=== PATIENT | female | born 1945 | race American Indian/Alaskan Native ===

== ENCOUNTER 2019-01-18 16:32 | Emergency (ER) | payer MEDICARE ==
[2019-01-18] MEDS ORDERED: TRAMADOL HCL 50 MG TAB ONE (17:15)
--- NOTE | 2019-01-18 17:36 | RAD REPORT ---
EXAM DESCRIPTION: RAD - Humerus Right - 01/18/2019 5:25 pm CLINICAL HISTORY: PAIN COMPARISON: No comparisons FINDINGS: Subacromial outlet narrowing is present suggesting underlying rotator cuff pathology. AC j oint and glenohumeral joint arthritic changes are noted. No acute fracture or dislocation evident.
--- NOTE | 2019-01-18 17:52 | RAD REPORT ---
EXAM DESCRIPTION: RAD - Forearm Right - 01/18/2019 5:25 pm CLINICAL HISTORY: PAIN COMPARISON: No comparisons FINDINGS: No acute fracture or dislocation seen.
--- NOTE | 2019-01-18 18:00 | EDPHYS ---
Physician Documentation [facility] Name: Esau Flynn Age: 73 yrs Sex: Female : 1945 Arrival Date: 01/18/2019 Time: 16:35 Bed 15 Private MD: ED Physician Praneeth Forbes HPI: 01/18 17:17 This 73 yrs old Other Female presents to ER via Ambulatory with complaints of Fall kb Injury, Shoulder Injury. 17:17 Details of fall: The patient fell from an upright position, while walking, tripped. kb Onset: The symptoms/episode began/occurred just prior to arrival. Associated injuries: The patient sustained right arm, decreased range of motion, painful injury. Severity of symptoms: At their worst the symptoms were moderate, in the emergency department the symptoms are unchanged. The patient has not experienced similar symptoms in the past. The patient has not recently seen a physician. 17:17 Pt reports she was walking, tripped and fell landing on outstretched right arm. c/o kb pain and decreased ROM to right arm and shoulder. Pain upon palpation of entire right arm.. Historical: - Allergies: 16:54 Sulfa (Sulfonamide Antibiotics); hb - PMHx: 16:54 breast cancer; Hypertension; neuropathy; Hypothyroidism; hb - PSHx: 16:54 Cholecystectomy; Hysterectomy; Left lumpectomy; right shoulder; hb - Immunization history:: Adult Immunizations up to date. - Social history:: Smoking status: Patient/guardian denies using tobacco. - Ebola Screening: : No symptoms or risks identified at this time. ROS: 17:14 Constitutional: Negative for fever, chills, and weight loss, Cardiovascular: Negative kb for chest pain, palpitations, and edema, Respiratory: Negative for shortness of breath, cough, wheezing, and pleuritic chest pain, Abdomen/GI: Negative for abdominal pain, nausea, vomiting, diarrhea, and constipation, Back: Negative for injury and pain, Skin: Negative for injury, rash, and discoloration, Neuro: Negative for headache, weakness, numbness, tingling, and seizure. 17:14 MS/extremity: Positive for decreased range of motion, pain, tenderness, of the right arm. Exam: 17:15 Constitutional: This is a well developed, well nourished patient who is awake, alert, kb and in no acute distress. Head/Face: Normocephalic, atraumatic. Neck: Trachea midline, no thyromegaly or masses palpated, and no cervical lymphadenopathy. Supple, full range of motion without nuchal rigidity, or vertebral point tenderness. No Meningismus. Chest/axilla: Normal chest wall appearance and motion. Nontender with no deformity. No lesions are appreciated. Cardiovascular: Regular rate and rhythm with a normal S1 and S2. No gallops, murmurs, or rubs. Normal PMI, no JVD. No pulse deficits. Respiratory: Lungs have equal breath sounds bilaterally, clear to auscultation and percussion. No rales, rhonchi or wheezes noted. No increased work of breathing, no retractions or nasal flaring. Abdomen/GI: Soft, non-tender, with normal bowel sounds. No distension or tympany. No guarding or rebound. No evidence of tenderness throughout. Skin: Warm, dry with normal turgor. Normal color with no rashes, no lesions, and no evidence of cellulitis. Neuro: Awake and alert, GCS 15, oriented to person, place, time, and situation. Cranial nerves II-XII grossly intact. Motor strength 5/5 in all extremities. Sensory grossly intact. Cerebellar exam normal. Normal gait. 17:15 Musculoskeletal/extremity: Extremities: grossly normal except: noted in the right arm: decreased ROM, pain, tenderness, ROM: limited active range of motion due to pain, limited passive range of motion due to pain, Circulation is intact in all extremities. Sensation intact. Vital Signs: 16:52 BP 136 / 78; Pulse 55; Resp 16; Temp 98.4; Pulse Ox 100% on R/A; Weight 83.91 kg; hb Height 5 ft. 4 in. (162.56 cm); Pain 10/10; 18:29 BP 138 / 72; Pulse 54; Resp 18; Temp 98.0; Pulse Ox 99% on R/A; ph 16:52 Body Mass Index 31.75 (83.91 kg, 162.56 cm) hb MDM: 16:58 Patient medically screened. kb 17:14 Data reviewed: vital signs, nurses notes. Data interpreted: Pulse oximetry: on room air kb is 100 %. Interpretation: normal. 17:58 Counseling: I had a detailed discussion with the patient and/or guardian regarding: the kb historical points, exam findings, and any diagnostic results supporting the discharge/admit diagnosis, radiology results, the need for outpatient follow up, a family practitioner, to return to the emergency department if symptoms worsen or persist or if there are any questions or concerns that arise at home. 01/18 17:01 Order name: Forearm Right XRAY; Complete Time: 17:58 kb 01/18 17:01 Order name: Humerus Right XRAY; Complete Time: 17:45 kb 01/18 17:59 Order name: Sling; Complete Time: 18:28 kb Administered Medications: 18:28 Not Given (Patient Refused): traMADol 50 mg PO once; RASS on ADMIN: Combtv4, Very ph Agttd3, Agttd2, Rstlss1, AlertClm0, Drwsy-1, Lt Sdtn-2, Mod Sdtn-3, Dp Sdtn-4, UnArsble-5 Disposition: 19:07 Co-signature as Attending Physician, Praneeth Forbes MD Signing chart for administrative ps1 purposes. Available for consultation in ED. . Disposition: 01/18/19 17:59 Discharged to Home. Impression: Fall on same level from slipping, tripping and stumbling, Pain in right arm. - Condition is Stable. - Discharge Instructions: Musculoskeletal Pain. - Prescriptions for Tramadol 50 mg Oral Tablet - take 1 tablet by ORAL route every 8 hours as needed; 12 tablet. - Medication Reconciliation Form, Thank You Letter, Antibiotic Education, Prescription Opioid Use form. - Follow up: Emergency Department; When: As needed; Reason: Worsening of condition. Follow up: Private Physician; When: 2 - 3 days; Reason: Recheck today's complaints, Continuance of care, Re-evaluation by your physician. Signatures: Dispatcher [employer] Catrina Cazares, URVASHI MATOS-Keyla Gardiner RN RN Herminia Polanco, BING RN Praneeth Shanks MD MD ps1 Corrections: (The following items were deleted from the chart) 18:29 17:59 01/18/2019 17:59 Discharged to Home. Impression: Fall on same level from ph slipping, tripping and stumbling; Pain in right arm. Condition is Stable. Forms are Medication Reconciliation Form, Thank You Letter, Antibiotic Education, Prescription Opioid Use. Follow up: Emergency Department; When: As needed; Reason: Worsening of condition. Follow up: Private Physician; When: 2 - 3 days; Reason: Recheck today's complaints, Continuance of care, Re-evaluation by your physician. kb
--- NOTE | 2019-01-18 18:00 | ER ---
Nurse's Notes [facility] Name: Esau Flynn Age: 73 yrs Sex: Female : 1945 Arrival Date: 01/18/2019 Time: 16:35 Bed 15 Private MD: Diagnosis: Fall on same level from slipping, tripping and stumbling;Pain in right arm Presentation: 01/18 16:52 Presenting complaint: Right shoulder pain after mechanical fall from standing onto hb outstretched hand today. Denies other injuries. Care prior to arrival: None. 16:52 Acuity: KHUSHI 4 hb 16:52 Method Of Arrival: Ambulatory hb 16:54 Transition of care: patient was not received from another setting of care. Onset of hb symptoms was January 18, 2019. Risk Assessment: Do you want to hurt yourself or someone else? Patient reports no desire to harm self or others. Initial Sepsis Screen: Does the patient meet any 2 criteria? No. Patient's initial sepsis screen is negative. Does the patient have a suspected source of infection? No. Patient's initial sepsis screen is negative. Historical: - Allergies: 16:54 Sulfa (Sulfonamide Antibiotics); hb - PMHx: 16:54 breast cancer; Hypertension; neuropathy; Hypothyroidism; hb - PSHx: 16:54 Cholecystectomy; Hysterectomy; Left lumpectomy; right shoulder; hb - Immunization history:: Adult Immunizations up to date. - Social history:: Smoking status: Patient/guardian denies using tobacco. - Ebola Screening: : No symptoms or risks identified at this time. Screenin:21 Abuse screen: Denies threats or abuse. Denies injuries from another. Nutritional ph screening: No deficits noted. Tuberculosis screening: No symptoms or risk factors identified. Fall Risk Fall in past 12 months (25 points). No secondary diagnosis (0 pts). No IV (0 pts). Ambulatory Aid- None/Bed Rest/Nurse Assist (0 pts). Gait- Normal/Bed Rest/Wheelchair (0 pts) Mental Status- Oriented to own ability (0 pts). Total Alvarez Fall Scale indicates Low Risk Score (25-44 pts). Fall prevention measures have been instituted. Side Rails Up X 2 Frequent Obs/Assesments occuring Family Present and informed to notify staff if they need to leave bedside As available Patient and Family Educated on Fall Prevention Program and strategies. Assessment: 17:20 General: Appears in no apparent distress. comfortable, well groomed, Behavior is calm, ph cooperative, appropriate for age. Pain: Complains of pain in right shoulder. Neuro: Level of Consciousness is awake, alert, obeys commands, Oriented to person, place, time, situation. Cardiovascular: Capillary refill < 3 seconds in bilateral fingers Patient's skin is warm and dry. Respiratory: Airway is patent Respiratory effort is even, unlabored. Derm: Skin is intact, Skin is pink, warm \T\ dry. Musculoskeletal: Circulation, motion, and sensation intact. Range of motion: intact in all extremities. Vital Signs: 16:52 BP 136 / 78; Pulse 55; Resp 16; Temp 98.4; Pulse Ox 100% on R/A; Weight 83.91 kg; hb Height 5 ft. 4 in. (162.56 cm); Pain 10/10; 18:29 BP 138 / 72; Pulse 54; Resp 18; Temp 98.0; Pulse Ox 99% on R/A; ph 16:52 Body Mass Index 31.75 (83.91 kg, 162.56 cm) hb ED Course: 16:35 Patient arrived in ED. mr 16:52 Triage completed. hb 16:52 Arm band placed on. hb 16:57 Catrina Mcginnis FNP-C is [facility]. kb 16:57 Praneeth Forbes MD is Attending Physician. kb 17:07 Keyla Ortiz, RN is Primary Nurse. ph 17:22 Patient has correct armband on for positive identification. Bed in low position. Call light in reach. 17:22 No provider procedures requiring assistance completed. ph 17:25 Forearm Right XRAY In Process Unspecified. EDMS 17:25 Humerus Right XRAY In Process Unspecified. EDMS 18:29 Patient did not have IV access during this emergency room visit. Sling applied to right ph arm. Administered Medications: 18:28 Not Given (Patient Refused): traMADol 50 mg PO once; RASS on ADMIN: Combtv4, Very ph Agttd3, Agttd2, Rstlss1, AlertClm0, Drwsy-1, Lt Sdtn-2, Mod Sdtn-3, Dp Sdtn-4, UnArsble-5 Outcome: 17:59 Discharge ordered by . kb 18:28 Discharged to home ambulatory, with family. ph 18:28 Condition: good 18:28 Discharge instructions given to patient, Instructed on discharge instructions, follow up and referral plans. medication usage, Demonstrated understanding of instructions, follow-up care, medications, Prescriptions given X 1. 18:29 Patient left the ED. ph Signatures: Dispatcher [employer] EDAL Catrina Mcginnis, URVASHI MATOS-Remigio Jose Marisela bains Keyla Ortiz RN RN Herminia Gomes RN RN Corrections: (The following items were deleted from the chart) 16:54 16:52 Presenting complaint: Right shoulder pain after mechanical fall from standing hb today. Denies other injuries. hb
[2019-01-18 20:37] VITALS: BP 138/72; TEMP 98; O2SAT 99
== END 2019-01-18 18:29 | disposition home or self-care (01) ==
LOC: ER 16:32
DX: M79.601 Pain in right arm (principal); W01.0XXA Fall on same level from slipping, tripping and stumbling without subsequent striking against object, initial encounter; Y93.9 Activity, unspecified; Y92.9 Unspecified place or not applicable; Z88.2 Allergy status to sulfonamides; Z85.3 Personal history of malignant neoplasm of breast
CPT/HCPCS: 99283

== ENCOUNTER → 2019-09-11 | Day surgery (SDC) | payer OTHER ==
--- NOTE | 2019-09-11 12:03 | RAD REPORT ---
EXAM DESCRIPTION: US - Breast Core BX w/US Guidance - 09/11/2019 11:19 am CLINICAL HISTORY: C50.412 COMPARISON: Breast ultrasound August 28 TECHNIQUE: The patient presents for ultrasound-guided biopsy of a 2 left breast masses. The ultrasound-guided core biopsy procedure, risks and alternatives were discussed with the patient i n detail. After answering all questions, both oral and written consent were obtained. Time out proced ure was performed. The patient had no contraindicated allergy or medication history. Preliminary imaging identified the 12 millimeter mass in the 10-11 o'clock left breast. The left liza st was prepped and draped in the usual sterile fashion. From a lateral and slightly inferior approach , skin and deeper tissues were anesthetized with 1% lidocaine. Under direct sonographic visualization a 14 gauge vacuum assisted core biopsy needle was advanced and placed at the margin of the mass. The re were a total of 2 core biopsies obtained under direct sonographic guidance. The mass did appear to have distortion in contour supporting transit of the biopsy needle through the small mass. At the conclusion of the procedure a localization clip was placed under sonographic guidance. Post biopsy imaging showed no hematoma or measurable bleeding within the breast. Hemostasis was obtai faustino at the skin site with a sterile bandage placed. Post procedure care and precaution instructions were given to the patient. IMPRESSION: 1. Ultrasound-guided core biopsy was performed of the left breast mass 10-11 o'clock pos ition breast mass. All obtained material was given to pathology for histologic assessment. 2. Post biopsy localization clip was placed under ultrasound guidance.
--- NOTE | 2019-09-11 12:05 | RAD REPORT ---
EXAM DESCRIPTION: US - Breast Core BX Addtnl - 09/11/2019 11:19 am CLINICAL HISTORY: 2 MASSES, left breast COMPARISON: Left breast ultrasound August 28 TECHNIQUE: The patient presents for ultrasound-guided biopsy of a 2 previously detailed left breast masses The ultrasound-guided core biopsy procedure, risks and alternatives were discussed with the patient i n detail. After answering all questions, both oral and written consent were obtained. Time out proced ure was performed. The patient had no contraindicated allergy or medication history. Preliminary imaging identified the small 8 mm mass 2 o'clock position. The left breast was prepped an d draped in the usual sterile fashion. The same access site was utilized for this second lesion biops y. The skin and deeper tissues were anesthetized with 1% lidocaine. Under direct sonographic visualiz ation a 14 gauge vacuum assisted core biopsy needle was advanced and placed at the margin of the mass . There were a total of 3 core biopsies obtained under direct sonographic guidance. The mass did appe ar to have distortion in contour supporting transit of the biopsy needle through the small mass. At the conclusion of the procedure a localization clip was placed under sonographic guidance. Post biopsy imaging showed no hematoma or measurable bleeding within the breast. Hemostasis was obtai faustino at the skin site with a sterile bandage placed. Post procedure care and precaution instructions were given to the patient. IMPRESSION: 1. Ultrasound-guided core biopsy was performed of the 8 mm 2 o'clock position left breas t mass. All obtained material was given to pathology for histologic assessment. 2. Post biopsy localization clip was placed under ultrasound guidance.
== END ==
LOC: DS 09:47
PROVIDERS: ATTEND Internal Medicine Hematology & Oncology
DX: C50.412 Malignant neoplasm of upper-outer quadrant of left female breast (principal); N63.20 Unspecified lump in the left breast, unspecified quadrant
CPT/HCPCS: 19083; 19084; 88305

== ENCOUNTER 2021-08-09 14:39 | Inpatient (IN) | payer OTHER, SELFPAY ==
--- OUTSIDE RECORDS SUMMARY | 2021-08-09 14:41 | XMS REPORT | Continuity of Care Document ---
:1945 [address] [facility] t Address [facility] [place] [address] Care Team Providers Name Role Phone Hal Attending Clinician Unavailable Problems This patient has no known problems. Allergies, Adverse Reactions, Alerts This patient has no known allergies or adverse reactions. Medications Ordered Filled Start Stop Current Ordering Indication Dosage Frequency Signature Comments Components Source Medication Medication Date Date Medication? Clinician (SIG) Name Name Tamsulosin Tamsulosin 2020- No Radha 1 capsule Common HCl HCl 8-24 02-19 [facility] 00:00: 00:00 - [facility] 00 :00 [facility] Gabapentin Gabapentin Yes Radha 1 capsule Common [facility] Alprazolam Alprazolam Yes Radha 1 tablet Common [facility] HydrOXYzine HydrOXYzine Yes Radha as Common HCl HCl Rodolfo directed [facility] Synthroid Synthroid Yes Radha 1 tablet Common Rodolfo on an [facility] empty - [facility] stomach in [facility] Hydrocodone Hydrocodone Yes Radha 1 tablet Common -Ibuprofen -Ibuprofen Rodolfo as needed [facility] Cozaar Cozaar Yes Radha 1 tablet Common [facility] Prozac Prozac Yes Radha 2 tab Common [facility] Tramadol Tramadol Yes Radha as Common HCl HCl Rodolfo directed [facility] Methenamine Methenamine Yes Radha 1 tablet Common Hippurate Hippurate Rodolfo S pirit - [facility] Carvedilol Carvedilol Yes Radha as Co mmon Rodolfo directed [facility] Procedures This patient has no known procedures. Encounters Start End Encounter Admission Attending Care Care Encounter Source Date/Time Date/Time Type Type Clinicians Facility Department ID 2021-03-12 Outpatient Hal, STLMLC STL[facility]C [id number] Common 14:07:36 Jose Antonio [address] [facility] 2021-03-12 Outpatient Hal, STLMLC STLMLC [id number] 2 Common 13:53:28 Jose Antonio [id number] [facility] 2021-03-12 Outpatient Hal, STLMLC STLMLC [id number] 2 Common 12:11:49 Jose Antonio [id number] [facility] 2021-03-12 Outpatient Hal, STLMLC STLMLC [id number] 2 Common 11:44:15 Jose Antonio [address] [facility] 2021-03-12 Outpatient Hal, STLMLC STLMLC [id number] 2 Common 11:35:50 Jose Antonio [address] [facility] 2020-12-12 2020-12-12 Outpatient STLMLC STLMLC [id number] Common 00:00:00 00:00:00 [facility] 2020-01-03 2020-01-03 Outpatient STLMLC STL[facility]C [id number] Common 00:00:00 00:00:00 [facility] 2019 2019 Outpatient STLMLC STLMLC [id number] Common 00:00:00 00:00:00 [facility] 2019-10-30 2019-10-30 [id number] Common 13:25:00 13:25:00 t Specialty/U Sp kathrine Specialty rology - [facility]rology Clinic [facility] 2019-10-09 2019-10-09 [facility] [id number] Common 10:00:00 10:00:00 t Specialty/U Sp kathrine Specialty rology - [facility] 2019-10-02 2019-10-02 [facility] [id number] Common 14:19:00 14:19:00 t Specialty/U Sp kathrine Specialty rology - [facility] 2019-09-14 2019-09-14 Outpatient Avni Haley [id number] Common 11:39:00 11:39:00 t Specialty/U Sp kathrine Specialty rology - [facility] Results This patient has no known results.
[2021-08-09 15:43] LABS: Absolute Lymphocytes (CBC) 1.1 K/uL (0.7-4.9); Hematocrit 47.2 % (36.0-45.0); MCV 93.7 fL (80-100); MPV 8.1 fL (7.6-11.3); RBC Red Blood Cell Count 5.04 M/uL (3.86-4.86)
[2021-08-09] MEDS ORDERED: ONDANSETRON 4 MG/2 ML VIAL ONE (15:49)
[2021-08-09] MEDS ORDERED: NA CHLORIDE 0.9% 1,000 ML ONE (15:50)
[2021-08-09] MEDS ORDERED: PANTOPRAZOLE 40 MG INJ ONE (15:50)
[2021-08-09 15:54] LABS: Albumin 3.5 g/dL (3.4-5.0); Bilirubin Total 0.5 mg/dL (0.2-1.0); Protein, Total 7.2 g/dL (6.4-8.2)
[2021-08-09] MEDS ORDERED: MORPHINE 2 MG/ML SYR ONE ×2 (16:17→20:31)
--- NOTE | 2021-08-09 16:51 | RAD REPORT ---
EXAM DESCRIPTION: CTAbdomen Pelvis W Contrast - 08/09/2021 4:31 pm CLINICAL HISTORY: GI bleed COMPARISON: Abdomen Pelvis W Contrast dated 01/09/2016; CT ABD PELVIS W CONTRAST dated 04/06/2014; CT ABD PELVIS W CONTRAST dated 02/18/2014 TECHNIQUE: CT of the abdomen and pelvis was performed. All CT scans are performed using dose optimization technique as appropriate and may include automated exposure control or mA/KV adjustment according to patient size. FINDINGS: Lower chest: No acute abnormality. Liver: Similar intra and extrahepatic biliary ductal dilatation. No suspicious liver masses identifie d. Biliary: Cholecystectomy. Extrahepatic biliary ductal dilatation measures up to 18 millimeters. This has been present on prior CTs. Stomach: No significant focal abnormality. Duodenum: No significant focal abnormality. Pancreas: Atrophic pancreas. Spleen: No significant abnormality. Adrenal: No suspicious lesions. Kidney/ureter: No hydronephrosis. No renal calculi. Renal cysts. Retroperitoneum: No retroperitoneal adenopathy. Vascular: No aneurysm. Atherosclerosis Bowel: Diffuse colonic wall thickening and hyperenhancement. Nonspecific fluid is present within the small bowel as well as generalized mesenteric edema. A segment of small bowel in the right hemiabdome n is somewhat more prominent with its degree of wall thickening and mesenteric edema. No appendicitis Peritoneum: No ascites or free air. Bladder: Grossly unremarkable. Reproductive: No adnexal masses. Hysterectomy Bones: No acute fracture. Chronic appearing L2 compression deformity. Other: n/a IMPRESSION: Findings most likely representing an enterocolitis. New abdominopelvic ascites.
--- NOTE | 2021-08-09 18:23 | ER ---
Nurse's Notes [facility] Name: Esau Flynn Age: 75 yrs Sex: Female : 1945 Arrival Date: 08/09/2021 Time: 14:46 Bed 3 Private MD: Diagnosis: Enterocolitis;GI Bleed/ Gastrointestinal hemorrhage, unspecified Presentation: 08/09 14:47 Chief complaint: EMS states: Rectal bleeding, weakness, near syncope, and pale x2 days; vg1 stated on scene there was dark red blood in toilet, on toilet and on the floor. Pt states lower ABD and tender to touch. Coronavirus screen: Vaccine status: Patient reports receiving the 2nd dose of the covid vaccine. Client denies travel out of the [place] in the last 14 days. Ebola Screen: Patient denies exposure to infectious person. Patient denies travel to an Ebola-affected area in the 21 days before illness onset. Initial Sepsis Screen: Does the patient meet any 2 criteria? No. Patient's initial sepsis screen is negative. Does the patient have a suspected source of infection? No. Patient's initial sepsis screen is negative. Risk Assessment: Do you want to hurt yourself or someone else? Patient reports no desire to harm self or others. Onset of symptoms was August 08, 2021. 14:47 Method Of Arrival: EMS: [facility] vg1 14:47 Acuity: KHUSHI 3 vg1 Triage Assessment: 14:49 General: Appears uncomfortable, ill, Behavior is calm, cooperative. Pain: Complains of vg1 pain in suprapubic area, right lower quadrant and left lower quadrant Pain currently is 10 out of 10 on a pain scale. EENT: No signs and/or symptoms were reported regarding the EENT system. Neuro: Level of Consciousness is awake, alert, obeys commands, Oriented to person, place, time, situation. Cardiovascular: Capillary refill is > 3 seconds in bilateral fingers. Respiratory: Airway is patent Respiratory effort is even, unlabored. GI: Abdomen is round non-distended, Reports lower abdominal pain, bloody stool. : No signs and/or symptoms were reported regarding the genitourinary system. Derm: Skin is pale. Musculoskeletal: Circulation, motion, and sensation intact. Historical: - Allergies: 14:49 Sulfa (Sulfonamide Antibiotics); vg1 - PMHx: 14:49 breast cancer; Hypertension; Hypothyroidism; neuropathy; vg1 - Immunization history:: Client reports receiving the 2nd dose of the Covid vaccine. - Social history:: Smoking status: Patient denies any tobacco usage or history of. Screenin:51 Abuse screen: Denies threats or abuse. Nutritional screening: No deficits noted. vg1 Tuberculosis screening: No symptoms or risk factors identified. Fall Risk No fall in past 12 months (0 pts). No secondary diagnosis (0 pts). IV access (20 points). Ambulatory Aid- None/Bed Rest/Nurse Assist (0 pts). Gait- Weak (10 pts.). Mental Status- Oriented to own ability (0 pts). Total Alvarez Fall Scale indicates Low Risk Score (25-44 pts). Fall prevention measures have been instituted. Side Rails Up X 2 Placed close to Nursing Station Family Present and informed to notify staff if they need to leave bedside As available Patient and Family Educated on Fall Prevention Program and strategies. Assessment: 14:47 Reassessment: SEE TRIAGE. vg1 15:45 Reassessment: Patient appears in no apparent distress at this time. No changes from vg1 previously documented assessment. Patient and/or family updated on plan of care and expected duration. Pain level reassessed. Patient is alert, oriented x 3, equal unlabored respirations, skin warm/dry/pink. 16:45 Reassessment: Patient appears in no apparent distress at this time. Patient and/or vg1 family updated on plan of care and expected duration. Pain level reassessed. Patient is alert, oriented x 3, equal unlabored respirations, skin warm/dry/pink. 19:53 Reassessment: Assisted patient up to bsc; Daughter at bedside speaking with Provider on lp1 update of plan of care. 20:22 Reassessment: Provider notified of patient complaint of continued lower abdominal lp1 cramping; Verbal order to give Morphine 2mg IV now. Vital Signs: 14:47 BP 98 / 75; Pulse 78; Resp 16; Temp 98.1; Pulse Ox 93% on R/A; Weight 77.11 kg; Height vg1 5 ft. 4 in. (162.56 cm); Pain 10/10; 15:59 BP 136 / 96; Pulse 69; Resp 16; Pulse Ox 93% on R/A; vg1 17:10 BP 167 / 93 LL (/reg); Pulse 67; Resp 16; Pulse Ox 97% on 3 lpm NC; vg1 17:24 BP 148 / 88 RA; Pulse 70; Resp 16; Pulse Ox 98% on 2 lpm NC; vg1 19:30 BP 136 / 95; Pulse 71; Resp 18; Pulse Ox 95% on 2 lpm NC; lp1 21:16 BP 150 / 95; Pulse 67; Resp 14; Temp 97.5(O); Pulse Ox 98% on 2 lpm NC; lp1 14:47 Body Mass Index 29.18 (77.11 kg, 162.56 cm) vg1 ED Course: 14:46 Patient arrived in ED. vg1 14:49 Triage completed. vg1 14:49 Arm band placed on. vg1 14:51 Patient has correct armband on for positive identification. Bed in low position. Call vg1 light in reach. Side rails up X2. Client placed on continuous cardiac and pulse oximetry monitoring. NIBP monitoring applied. mix house tender on. 14:52 Sophie Robin RN is Primary Nurse. vg1 15:00 Inserted saline lock: 20 gauge in right antecubital area, using aseptic technique. jh6 Blood collected. 15:06 Faraz Chávez NP is PHCP. pm1 15:06 Josué Majano MD is Attending Physician. pm1 15:41 Served as a bacteriologist dairy during rectal exam. vg1 16:33 CT Abd/Pelvis - IV Contrast Only In Process Unspecified. EDMS 18:39 initiated a transfer with Maritza from the [facility] Transfer [place]. eb 19:14 Primary Nurse role handed off by Sophie Robin RN mw2 19:27 Palakbrian ColbertArron from [facility] [place] is working on the transfer now. mw2 19:37 connected Faraz Chávez NP with the Hospitalist from [facility]. mw2 19:58 Yefri Tierney MD is Hospitalizing Provider. pm1 20:21 Kanchan Guzman, RN is Primary Nurse. lp1 21:16 Patient admitted, IV remains in place. lp1 22:56 Primary Nurse role handed off by Kanchan Guzman, BING lp1 Administered Medications: 15:50 Drug: NS 0.9% 1000 ml Route: IV; Rate: 1 bolus; Site: right antecubital; vg1 15:50 Drug: Zofran (Ondansetron) 4 mg Route: IVP; Site: right antecubital; vg1 15:52 Drug: ProTONIX (pantoprazole) 40 mg Route: IVP; Site: right antecubital; vg1 16:11 Drug: morphine 2 mg Route: IVP; Infused Over: 4 mins; Site: right antecubital; vg1 21:32 Follow up: Response: No adverse reaction lp1 20:10 Drug: Cipro (ciprofloxacin) 400 mg Volume: 200 ml; Route: IVPB; Infused Over: 60 mins; lp1 Site: right antecubital; 21:32 Follow up: IV Status: Completed infusion; IV Intake: 200ml lp1 20:30 Drug: morphine 2 mg Route: IVP; Infused Over: 4 mins; Site: right antecubital; lg3 20:30 Follow up: Response: No adverse reaction lg3 21:32 Drug: Flagyl (metroNIDAZOLE) 500 mg Volume: 100 ml; Route: IVPB; Rate: 200 ml/hr; lp1 Infused Over: 30 mins; Site: right antecubital; 21:46 Follow up: IV Status: Infusion continued upon admission lp1 Medication: 14:51 VIS not applicable for this client. vg1 Intake: 21:32 IV: 200ml; Total: 200ml. lp1 Outcome: 18:23 ER care complete, transfer ordered by MD. pm1 19:58 Decision to Hospitalize by Provider. pm1 21:12 Condition: stable lp1 21:12 Instructed on the need for admit. 21:46 Admitted to Tele room 412, with oxygen, with chart, Report called to BING Riojas lp1 21:58 Patient left the ED. lp1 Signatures: Dispatcher [employer] EDMS Kanchan Guzman RN RN lp1 Faraz Chávez, DESIGN DIRECTOR DESIGN DIRECTOR pm1 Grant Mendez mw2 Sera Yusuf Lacie RN RN lg3 Sophie Robin RN RN vg1 Felisha Painter RN RN jh6
--- NOTE | 2021-08-09 18:24 | EDPHYS ---
Physician Documentation [facility] Name: Esau Flynn Age: 75 yrs Sex: Female : 1945 Arrival Date: 08/09/2021 Time: 14:46 Bed 3 Private MD: ED Physician Josué Majano HPI: 08/09 15:15 This 75 yrs old Female presents to ER via EMS with complaints of GI Bleeding. pm1 15:15 The patient presents to the emergency department with rectal bleeding, Bright red pm1 blood. Onset: The symptoms/episode began/occurred today. Abdominal pain: located in the suprapubic area. Modifying factors: the symptoms are aggravated by nothing. Associated signs and symptoms: Pertinent positives: generalized weakness, Pertinent negatives: chest pain, dizziness at rest, dizziness when standing, fever. Severity of symptoms: in the emergency department the symptoms are unchanged. The patient has not experienced similar symptoms in the past. The patient has not recently seen a physician, the patient's primary care provider is Jacek Martínez for GI. Historical: - Allergies: 14:49 Sulfa (Sulfonamide Antibiotics); vg1 - PMHx: 14:49 breast cancer; Hypertension; Hypothyroidism; neuropathy; vg1 - Immunization history:: Client reports receiving the 2nd dose of the Covid vaccine. - Social history:: Smoking status: Patient denies any tobacco usage or history of. ROS: 15:15 Constitutional: Negative for fever, chills, and weight loss, Cardiovascular: Negative pm1 for chest pain, palpitations, and edema, Respiratory: Negative for shortness of breath, cough, wheezing, and pleuritic chest pain. 15:15 Back: Negative for injury and pain, MS/Extremity: Negative for injury and deformity, Skin: Negative for injury, rash, and discoloration, Neuro: Negative for headache, weakness, numbness, tingling, and seizure. 15:15 Abdomen/GI: Positive for abdominal pain, rectal bleeding, of the suprapubic area, Negative for nausea, vomiting, and diarrhea, black/tarry stool, rectal pain. 15:15 All other systems are negative. Exam: 15:15 Constitutional: This is a well developed, well nourished patient who is awake, alert, pm1 and in no acute distress. Head/Face: Normocephalic, atraumatic. 15:15 Back: No spinal tenderness. No costovertebral tenderness. Full range of motion. Skin: Warm, dry with normal turgor. Normal color with no rashes, no lesions, and no evidence of cellulitis. MS/ Extremity: Pulses equal, no cyanosis. Neurovascular intact. Full, normal range of motion. 15:15 Eyes: Extraocular movements: no acute changes, Conjunctiva: no acute changes. 15:15 Cardiovascular: Exam negative for acute changes, Rate: normal, Rhythm: regular, Pulses: no pulse deficits are appreciated. 15:15 Respiratory: Exam negative for acute changes, respiratory distress, shortness of breath, Breath sounds: are clear throughout. 15:15 Abdomen/GI: Inspection: obese Palpation: soft, in all quadrants, mild abdominal tenderness, in the suprapubic area. 15:15 Neuro: Exam negative for acute changes, Orientation: is normal, Mentation: is normal, Motor: is normal, moves all fours. 15:29 Abdomen/GI: Rectal exam: rectal tone normal, Stool: maroon, with bright red blood, pm1 hemorrhoid(s), external, without bleeding, without inflammation, without thrombosis, without pain, Laura SMART. Vital Signs: 14:47 BP 98 / 75; Pulse 78; Resp 16; Temp 98.1; Pulse Ox 93% on R/A; Weight 77.11 kg; Height vg1 5 ft. 4 in. (162.56 cm); Pain 10/10; 15:59 BP 136 / 96; Pulse 69; Resp 16; Pulse Ox 93% on R/A; vg1 17:10 BP 167 / 93 LL (/reg); Pulse 67; Resp 16; Pulse Ox 97% on 3 lpm NC; vg1 17:24 BP 148 / 88 RA; Pulse 70; Resp 16; Pulse Ox 98% on 2 lpm NC; vg1 19:30 BP 136 / 95; Pulse 71; Resp 18; Pulse Ox 95% on 2 lpm NC; lp1 21:16 BP 150 / 95; Pulse 67; Resp 14; Temp 97.5(O); Pulse Ox 98% on 2 lpm NC; lp1 14:47 Body Mass Index 29.18 (77.11 kg, 162.56 cm) vg1 MDM: 15:07 Patient medically screened. pm1 17:09 Physician consultation: Called Dr. Read, Patient's GI MD. Left message. Not on-call. pm1 Chet his partner will be content writer on Wednesday. 17:22 Data reviewed: vital signs. Data interpreted: Pulse oximetry: on room air is 97 %. pm1 Interpretation: normal. 18:20 Counseling: I had a detailed discussion with the patient and/or guardian regarding: the pm1 historical points, exam findings, and any diagnostic results supporting the discharge/admit diagnosis, lab results, radiology results, the need to transfer to another facility, [facility] does not immediately have the required specialist, No GI available. 19:52 Physician consultation: Hospitalist [facility] regarding regarding transfer, pm1 patient's condition, Discussed case with [facility] and he does not see the need for transfer. His impression is the enterocolitis is the cause of the bleeding, she needs bowel rest and IV antibiotics. He would not be performing a scope on the patient. If patient's status changes, we can contact them for assistance . 08/09 15:15 Order name: Type And Screen; Complete Time: 16:55 pm08/09 15:15 Order name: CBC with Diff; Complete Time: 10:47 pm1 08/09 15:15 Order name: CMP; Complete Time: 16:09 pm08/09 15:15 Order name: Lipase; Complete Time: 16: pm08/09 16:03 Order name: SARS-COV-2 RT PCR (Document "Date of Onset" if Symptomatic); Complete Time: 18:08/09 21:52 Order name: CBC Smear Scan; Complete Time: 10:47 EDMS 08/09 15:15 Order name: CT Abd/Pelvis - IV Contrast Only; Complete Time: 16:55 pm08/09 15:15 Order name: IV Saline Lock; Complete Time: 15:24 pm08/09 15:15 Order name: Labs collected and sent; Complete Time: 15:24 pm08/09 15:15 Order name: EKG; Complete Time: 15:16 pm08/09 15:15 Order name: EKG - Nurse/Tech; Complete Time: 15:24 pm1 Administered Medications: 15:50 Drug: NS 0.9% 1000 ml Route: IV; Rate: 1 bolus; Site: right antecubital; vg1 15:50 Drug: Zofran (Ondansetron) 4 mg Route: IVP; Site: right antecubital; vg1 15:52 Drug: ProTONIX (pantoprazole) 40 mg Route: IVP; Site: right antecubital; vg1 16:11 Drug: morphine 2 mg Route: IVP; Infused Over: 4 mins; Site: right antecubital; vg1 21:32 Follow up: Response: No adverse reaction lp1 20:10 Drug: Cipro (ciprofloxacin) 400 mg Volume: 200 ml; Route: IVPB; Infused Over: 60 mins; lp1 Site: right antecubital; 21:32 Follow up: IV Status: Completed infusion; IV Intake: 200ml lp1 20:30 Drug: morphine 2 mg Route: IVP; Infused Over: 4 mins; Site: right antecubital; lg3 20:30 Follow up: Response: No adverse reaction lg3 21:32 Drug: Flagyl (metroNIDAZOLE) 500 mg Volume: 100 ml; Route: IVPB; Rate: 200 ml/hr; lp1 Infused Over: 30 mins; Site: right antecubital; 21:46 Follow up: IV Status: Infusion continued upon admission lp1 Disposition: 08/10 18:02 Co-signature as Attending Physician, Josué Majano MD. va2 Disposition Summary: 08/09/21 19:58 Hospitalization Ordered Hospitalization Status: Inpatient Admission pm1 Provider: Yefri Tierney pm1 Location: Telemetry/MedSurg (Inpatient) pm1 Condition: Stable(08/09/21 19:58) pm1 Problem: new(08/09/21 19:58) pm1 Symptoms: have improved(08/09/21 19:58) pm1 Bed/Room Type: Standard pm1 Room Assignment: 402(08/09/21 21:51) lp1 Diagnosis - Enterocolitis pm1 - GI Bleed/ Gastrointestinal hemorrhage, unspecified(08/09/21 19:58) pm1 Forms: - Medication Reconciliation Form pm1 - SBAR form pm1 Signatures: Dispatcher [employer] EDKanchan Miranda RN RN 1 Hanny Robin RN RN Faraz Chávez NP COFFEE BREAK ATTENDANT pm1 Josué Majano MD MD va2 Hien Marquez, RN RN lg3 Sophie Robin, RN RN vg1 Corrections: (The following items were deleted from the chart) 08/09 19:18 18:23 pm1 pm1 19:18 19:18 pm1 pm1 19:57 18:23 [facility] pm1 pm1 19:57 18:23 Higher level of care pm1 pm1 19:57 18:23 Stable pm1 pm1 19:57 18:23 new pm1 pm1 19:57 18:23 have improved pm1 pm1 19:57 18:23 GI Bleed/ Gastrointestinal hemorrhage, unspecified pm1 pm1 19:57 19:18 Enterocolitis pm1 pm1 19:57 19:18 pm1 pm1 20:42 19:58 pm1 cg 21:51 20:42 412 cg lp1
[2021-08-09] MEDS ORDERED: CIPROFLOXACIN 400mg IV 400 MG/200 ML BAG IV ONE (19:39)
[2021-08-09] MEDS ORDERED: METRONIDAZOLE 500mg IVPB 500 MG/100 ML BAG IV ONE (19:39)
--- NOTE | 2021-08-09 20:56 | P.HP ---
Certification for Inpatient Patient admitted to: Inpatient With expected LOS: >2 Midnights Patient will require the following post-hospital care: None Practitioner: I am a practitioner with admitting privileges, knowledge of patient current condition, hospital course, and medical plan of care. Services: Services provided to patient in accordance with Admission requirements found in Title 42 Section 412.3 of the Code of Federal Regulations Patient History Date of Service: 08/09/21 Reason for admission: Enterocolitis, LGIB History of Present Illness: 75-year-old female history of hypertension, hypothyroidism, depression/anxiety and chronic pain presents the emergency department for 1 day of lower abdominal pain and bright red blood per rectum. She reports that while she is having bowel movement today she had 1 episode of bright red blood in her stool with some maroon appearing blood noted. She was evaluated in the emergency department her labs were significant for leukocytosis, normal hemoglobin level mild acute kidney injury CT of the abdomen pelvis with IV contrast revealed findings most likely representing an enterocolitis with new abdominal pelvic ascites noted. Initially ED provider discussed case with GI at [facility] GI stated patient likely does not need intervention could be treated conservatively with bowel rest and IV antibiotics, hospitalist was consulted for admission as patient's primary care doctor Dr. Hong is out of town. Vital signs are stable patient's not hypotensive she does appear quite pale the daughter states that this is similar to her normal complexion. No further episodes of bleeding thus far will admit for further evaluation and management. We do have GI available on Wednesday if that becomes necessary. Allergies Sulfa (Sulfonamide Antibiotics) Allergy (Intermediate, Verified 06/29/14 04:41) Itching Home Medications: Levothyroxine Sodium [Synthroid] 125 mcg PO DAILY 04/08/14 Lorazepam [Ativan] 1 mg PO QID 04/08/14 Omeprazole Magnesium [Prilosec Otc] 20 mg PO BID 04/08/14 Quetiapine Fumarate [Seroquel] 1 tab PO BEDTIME 04/08/14 Tramadol HCl [Ultram ER] 100 mg PO TID 04/08/14 carvediloL [Coreg*] 12.5 mg PO BID PRN 04/08/14 Amlodipine Bes/Olmesartan Med [Jerome 5-40 mg Tablet] 1 tab PO DAILY 05/17/14 Desvenlafaxine Succinate [Pristiq] 1 tab PO DAILY 05/17/14 ondansetron HCL [Zofran] 1 tab PO Q4H PRN 05/17/14 Aa8/A-Carnit/Grap/[place]/Zfw686 [Gabadone Capsule] 300 ng PO TID 06/28/14 Ciprofloxacin HCl [Cipro 500 MG Tablet] 500 mg PO BID #10 tablet 07/03/14 Magnesium Oxide [Mag 0X*] 400 mg PO BID #10 tab 07/03/14 Potassium Chloride [Klor-Con 10] 10 meq PO DAILY #5 tablet.er 07/03/14 metroNIDAZOLE [Flagyl*] 500 mg PO TID #15 tablet 07/03/14 - Past Medical/Surgical History Diabetic: No -: HTN -: Anxiety -: Breast cancer -: Hypothyroidism -: Chronic pain -: Hysterectomy -: Lap Laure 2001 -: Lumpectomy from L breast -: Metal implant in right shoulder Psychosocial/ Personal History: Patient lives at home with family - Family History Father -: Lung disease Notes: Smoker Mother -: Hypertension Sister -: Hypertension - Social History Smoking Status: Never smoker Alcohol use: No CD- Drugs: No Caffeine use: No Place of Residence: Home Review of Systems 10-point ROS is otherwise unremarkable Gastrointestinal: Nausea, Abdominal Pain, Hematochezia Physical Examination - Physical Exam General: Alert, In no apparent distress, Oriented x3, Obese HEENT: Atraumatic, PERRLA, Mucous membr. moist/pink, EOMI, Sclerae nonicteric Neck: Supple, 2+ carotid pulse no bruit, No LAD, Without JVD or thyroid abnormality Respiratory: Clear to auscultation bilaterally, Normal air movement Cardiovascular: Regular rate/rhythm, Normal S1 S2 Gastrointestinal: Normal bowel sounds, Tenderness (Moderate epigastric, left lower quadrant, suprapubic tenderness) Musculoskeletal: No tenderness Integumentary: No rashes Neurological: Normal speech, Normal strength at 5/5 x4 extr, Normal tone, Normal affect - Studies Laboratory Data (last 24 hrs) 08/09/21 15:12: Sodium 139, Potassium 4.0, BUN 16, Creatinine 1.54 H, Glucose 156 H, Total Bilirubin 0.5, AST 22, ALT 22, Alkaline Phosphatase 90, Lipase 52 L 08/09/21 15:12: WBC 15.5 H, Hgb 15.6 H, Hct 47.2 H, Plt Count 394 Assessment and Plan - Plan Assessment: Enterocolitis with associated lower GI bleed Hypertension Hypothyroidism Anxiety/depression Chronic pain History of breast cancer with left mastectomy Plan: Enterocolitis with associated lower GI bleed: No further episodes of bleeding thus far will trend hemoglobin, n.p.o. for tonight IV antibiotics with Cipro/Flagyl. Patient reports last colonoscopy "a number of years ago" will need to follow-up with GI at discharge. Hypertension: Hold oral medications patient n.p.o. at this time restart when appropriate. Hypothyroidism: Continue home medications when appropriate Anxiety/depression:Continue home medications when appropriate Chronic pain: As needed IV pain medication while n.p.o. restart home medications of [place], tramadol, gabapentin when appropriate. History of breast cancer with left mastectomy: Stable no needle sticks or blood pressures left arm. DVT PPX: SCD given GI bleed Code status: Full Discharge Plan: Home Plan to discharge in: 48 Hours - Advance Directives Does patient have a Living Will: Yes Does patient have a Durable POA for Healthcare: No - Code Status/Comfort Care Code Status Assessed: Yes (Full code) Critical Care: No Time Spent Managing Pts Care (In Minutes): 70
[2021-08-09 21:51] LABS: White Blood Cell Scan OK (OK)
[2021-08-09 21:52] LABS: Blood Morphology Comment NOT SEEN (NOT SEEN); Platelet Estimate ADEQ
[2021-08-09] MEDS ORDERED: SODIUM CHLORIDE 0.9% 10ML INJ IV PRN (22:19)
[2021-08-09] MEDS ORDERED: ONDANSETRON 4 MG/2 ML VIAL IV PRN (22:19)
[2021-08-09] MEDS: NA CHLORIDE 0.9% 1,000 ML IV SCH (22:42)
[2021-08-09] MEDS ORDERED: ALPRAZOLAM 1 MG TABLET PO PRN (22:46)
[2021-08-09] MEDS: QUETIAPINE 100MG TAB PO SCH (23:11)
[2021-08-09 23:32] LABS: Absolute Lymphocytes (CBC) 1.2 K/uL (0.7-4.9); Hematocrit 43.1 % (36.0-45.0); Lymphocytes % 8.4 % (15.3-44.8); MCV 95.6 fL (80-100); MPV 7.6 fL (7.6-11.3)
[2021-08-10 05:26] LABS: Absolute Lymphocytes (CBC) 1.4 K/uL (0.7-4.9); Hematocrit 40.5 % (36.0-45.0); Lymphocytes % 10.6 % (15.3-44.8); MCV 96.3 fL (80-100); MPV 8.1 fL (7.6-11.3); RBC Red Blood Cell Count 4.21 M/uL (3.86-4.86)
[2021-08-10 05:33] LABS: Albumin 2.8 g/dL (3.4-5.0); Bilirubin Total 0.4 mg/dL (0.2-1.0); Magnesium 1.6 mg/dL (1.8-2.4); Potassium 3.7 mmol/L (3.5-5.1); Protein, Total 5.9 g/dL (6.4-8.2)
--- NOTE | 2021-08-10 06:58 | P.PN ---
Date of Service: 08/10/21 Subjective: feeling better, tired still with abdominal pain no BM / no blood per rectum today no nausea/vomiting ROS: 10 point ROS as noted above, otherwise negative Physical exam GEN: Alert, oriented, NAD CV: Regular rate and rhythm, no edema Pulm: Nonlabored respirations on room air ABD: moderate diffuse tenderness, nondistended Neuro: Normal speech, normal affect Problem List Enterocolitis with associated lower GI bleed Hypertension Hypothyroidism Anxiety/depression Chronic pain History of breast cancer with left mastectomy #Enterocolitis with associated lower GI bleed: No further episodes of bleeding thus far No BM yet Hgb minimal decrease vitals stable NPO except sips for now, still very tender continue IV antibiotics Cipro/flagyl last c-scope "number of years ago"; f/u GI for c-scope in near future #HTN #Hypothyroidism #Anxiety/depression continue as appropriate #Chronic Pain IV pain medication whlie NPO #History of breast cancer with left mastectomy: Stable no needle sticks or blood pressures left arm. VTE: SCDs, LGI bleed Code: full Dispo: home, ~2-3 days Time Spent Managing Pts Care (In Minutes): 35
[2021-08-10] MEDS ORDERED: POTASSIUM CL SA 10 MEQ TAB PO ONE (07:30)
[2021-08-10] MEDS ORDERED: PANTOPRAZOLE 40 MG INJ IVP SCH (09:00)
[2021-08-10] MEDS: METRONIDAZOLE 500mg IVPB 500 MG/100 ML BAG IV SCH ×2 (09:15→16:32)
[2021-08-10] MEDS: PANTOPRAZOLE 40 MG INJ IVP SCH (09:15)
[2021-08-10] MEDS ORDERED: PNEUMOCOCCAL VACCINE 0.5 ML IMVAC ONE (10:00)
[2021-08-10] MEDS: CIPROFLOXACIN 400mg IV 400 MG/200 ML BAG IV SCH ×2 (13:30→20:16)
[2021-08-10] MEDS: NA CHLORIDE 0.9% 1,000 ML IV SCH (15:01)
[2021-08-10] MEDS: MORPHINE 2 MG/ML SYR IV PRN ×2 (15:56→19:28)
[2021-08-10] MEDS ORDERED: CIPROFLOXACIN 400mg IV 400 MG/200 ML BAG IV SCH (18:00)
--- NOTE | 2021-08-10 19:17 | EKG ---
Test Date: 2021-08-09 Test Time: 15:03:45 Stencil Machine Operator: SANDY MEASUREMENT RESULTS: Intervals: Rate: 75 VT: 138 QRSD: 80 QT: 396 QTc: 442 [place]: P: -21 VT: 138 QRS: 33 T: 91 INTERPRETIVE STATEMENTS: Normal sinus rhythm Nonspecific T wave abnormality Abnormal ECG Compared to ECG 01/09/2016 14:14:42 T-wave abnormality now present ST (T wave) deviation no longer present Possible ischemia no longer present Electronically Signed On 08-10-21 19:15:34 CDT by Stephen Castrejon
[2021-08-10] MEDS: QUETIAPINE 100MG TAB PO SCH (20:17)
[2021-08-10 22:36] VITALS: BMI 29.2
[2021-08-11] MEDS: METRONIDAZOLE 500mg IVPB 500 MG/100 ML BAG IV SCH ×3 (00:39→16:33)
[2021-08-11] MEDS: NA CHLORIDE 0.9% 1,000 ML IV SCH ×5 (00:39→23:05)
[2021-08-11 04:12] LABS: Absolute Lymphocytes (CBC) 1.3 K/uL (0.7-4.9); Hematocrit 32.9 % (36.0-45.0); Lymphocytes % 12.8 % (15.3-44.8); MCV 93.8 fL (80-100); MPV 7.8 fL (7.6-11.3)
[2021-08-11 04:36] LABS: Albumin 2.7 g/dL (3.4-5.0); Bilirubin Total 0.4 mg/dL (0.2-1.0); Magnesium 1.7 mg/dL (1.8-2.4); Potassium 3.9 mmol/L (3.5-5.1); Protein, Total 5.6 g/dL (6.4-8.2)
[2021-08-11] MEDS ORDERED: POTASSIUM CL SA 10 MEQ TAB PO ONE (04:51)
[2021-08-11] MEDS ORDERED: PANTOPRAZOLE 40 MG INJ IVP SCH (07:30)
[2021-08-11] MEDS: PANTOPRAZOLE 40 MG INJ IVP SCH (09:27)
[2021-08-11] MEDS: CIPROFLOXACIN 400mg IV 400 MG/200 ML BAG IV SCH ×2 (09:27→20:06)
[2021-08-11] MEDS: MORPHINE 2 MG/ML SYR IV PRN (14:51)
[2021-08-11 15:01] LABS: Urine Appearance Clear (Clear); Urine Bilirubin Negative (Negative); Urine Blood Negative (Negative); Urine Color Yellow (Yellow); Urine Glucose Negative (Negative); Urine Protein Trace (Negative); Urine Specific Gravity >=1.030 (1.005-1.030); Urine Urobilinogen 0.2 mg/dL (0.2-1.0); Urine pH 5.5 (5.0-7.0)
[2021-08-11 15:11] LABS: Urine Bacteria NONE SEEN /HPF (<20); Urine Coarse Granular Casts 0-5 /LPF (NONE SEEN); Urine Mucus 1+ /HPF (NONE SEEN); Urine RBC <5 /HPF (NONE SEEN)
[2021-08-11] MEDS: QUETIAPINE 100MG TAB PO SCH (22:03)
[2021-08-12] MEDS: METRONIDAZOLE 500mg IVPB 500 MG/100 ML BAG IV SCH ×3 (00:21→18:05)
[2021-08-12 05:37] LABS: Albumin 2.8 g/dL (3.4-5.0); Bilirubin Total 0.5 mg/dL (0.2-1.0); Magnesium 1.6 mg/dL (1.8-2.4); Potassium 3.5 mmol/L (3.5-5.1); Protein, Total 5.5 g/dL (6.4-8.2)
[2021-08-12] MEDS ORDERED: POTASSIUM CL SA 10 MEQ TAB PO ONE (05:50)
[2021-08-12 06:45] LABS: Absolute Lymphocytes (CBC) 1.4 K/uL (0.7-4.9); Hematocrit 29.5 % (36.0-45.0); Lymphocytes % 19.3 % (15.3-44.8); MCV 95.4 fL (80-100); MPV 7.7 fL (7.6-11.3); RBC Red Blood Cell Count 3.09 M/uL (3.86-4.86)
[2021-08-12] MEDS: CIPROFLOXACIN 400mg IV 400 MG/200 ML BAG IV SCH ×2 (08:36→20:12)
[2021-08-12] MEDS: MORPHINE 2 MG/ML SYR IV PRN ×2 (08:37→18:04)
[2021-08-12] MEDS: PANTOPRAZOLE 40 MG INJ IVP SCH (08:37)
--- NOTE | 2021-08-12 10:09 | RAD REPORT ---
EXAM DESCRIPTION: CT - Abdomen Pelvis W Contrast - 08/12/2021 9:12 am CLINICAL HISTORY: f/u COMPARISON: Abdomen Pelvis W Contrast dated 08/09/2021; Abdomen Pelvis W Contrast dated 6 TECHNIQUE: Biphasic, helical CT imaging of the abdomen and pelvis was performed following 100 ml non -ionic IV contrast. Oral contrast was given. All CT scans are performed using dose optimization technique as appropriate and may include automated exposure control or mA/KV adjustment according to patient size. FINDINGS: Minimal bilateral pleural effusions are present with lung base atelectasis. And lung base findings are new from August 09 imaging. No pericardial thickening or effusion have developed. No focal liver parenchymal mass identified. Liver is normal size. No spleen or pancreatic acute findi ng. There is pancreatic parenchymal atrophy. Cholecystectomy clips are present. There is very prominent intrahepatic and extrahepatic biliary tree dilatation. This is similar to August 09 imaging. No mass in the duodenum or head of the pancreas. Morgan t stones can be occult. This dilatation was present to a lesser degree on the 2015 study. This dilata tion may be a prominent reservoir affect in a cholecystectomy patient. Correlation is needed with any biliary obstructive laboratory or exam findings. Symmetric renal function is seen with no hydronephrosis or suspicious renal mass. No pyelonephritis o r acute parenchymal process. No bladder abnormalities. No adrenal abnormalities. Renal cysts are agai n noted. Pelvic floor laxity is present. No gastric abnormality identifiable. The small bowel enteritis finding seen on the August 09 study have resolved. Currently there is no small bowel wall thickening or edema. No acute colon process seen. No free air or pneumatosis. Trace amount of free fluid is present in the peritoneal cavity. No mass or bulky lymphadenopathy. No suspicious bony findings. IMPRESSION: The small bowel enteritis finding seen on the August 09 study have resolved. No acute GI p rocess is currently seen. Prominent dilatation of the biliary tree without stone or mass identifiable. This is similar to August 09. This may be baseline for the patient if there are no clinical or laboratory findings of biliary o bstruction.
[2021-08-12] MEDS: NA CHLORIDE 0.9% 1,000 ML IV SCH ×2 (10:19→20:13)
[2021-08-12] MEDS ORDERED: LIDOCAINE 1% MPF 5 ML VIAL ONE (16:13)
[2021-08-12] MEDS: QUETIAPINE 100MG TAB PO SCH (20:12)
[2021-08-13] MEDS: MORPHINE 2 MG/ML SYR IV PRN (00:05)
[2021-08-13] MEDS: METRONIDAZOLE 500mg IVPB 500 MG/100 ML BAG IV SCH ×2 (00:08→08:48)
[2021-08-13] MEDS: NA CHLORIDE 0.9% 1,000 ML IV SCH (05:22)
[2021-08-13] MEDS: CIPROFLOXACIN 400mg IV 400 MG/200 ML BAG IV SCH (08:47)
[2021-08-13] MEDS: PANTOPRAZOLE 40 MG INJ IVP SCH (08:48)
[2021-08-13] MEDS ORDERED: POTASSIUM CL SA 10 MEQ TAB PO ONE (09:00)
[2021-08-13 09:30] LABS: Potassium 3.2 mmol/L (3.5-5.1)
[2021-08-13 09:40] LABS: Absolute Lymphocytes (CBC) 1.7 K/uL (0.7-4.9); Hematocrit 32.4 % (36.0-45.0); Lymphocytes % 30.9 % (15.3-44.8); MCV 94.3 fL (80-100); MPV 8.1 fL (7.6-11.3); RBC Red Blood Cell Count 3.43 M/uL (3.86-4.86)
[2021-08-13] MEDS ORDERED: ACETAMINOPHEN 500 MG TAB PO PRN (16:41)
[2021-08-13] MEDS: QUETIAPINE 100MG TAB PO SCH (20:20)
[2021-08-13] MEDS: metroNIDAZOLE 500 MG TABLET PO SCH (20:20)
[2021-08-13] MEDS: CIPROFLOXACIN HCL 500 MG TAB PO SCH (20:20)
[2021-08-13 21:24] VITALS: O2SAT 97
[2021-08-14] MEDS: MORPHINE 2 MG/ML SYR IV PRN ×2 (00:22→03:58)
[2021-08-14] MEDS: CIPROFLOXACIN HCL 500 MG TAB PO SCH (08:14)
[2021-08-14] MEDS: PANTOPRAZOLE 40 MG INJ IVP SCH (08:14)
[2021-08-14] MEDS: metroNIDAZOLE 500 MG TABLET PO SCH ×2 (08:14→14:09)
[2021-08-14] MEDS ORDERED: POTASSIUM CL SA 10 MEQ TAB PO ONE (09:00)
[2021-08-14 12:51] VITALS: BP 149/90; TEMP 98.4
--- NOTE | 2021-08-14 17:17 | PN ---
Date of Progress Note: 08/14/2021 The patient continues to improve. Appetite has been quite back to normal, although she is complainin g of fluid. functions are normal. Vital signs are stable. Potassium is still low somewh at, although she has not been on any diuretic and is being replaced. She can be discharged to [facility] ue Cipro, Flagyl for 5 days, and low-dose potassium for 5 days. She will follow up with me in the [facility] next week with some dietary restrictions. HR/MODL Voice ID: [id number] Report ID: [id number]
== END 2021-08-14 14:20 | disposition home health service (06) | DRG 392 ==
LOC: ER 14:39 → ERHOLD 20:32 → 4TH 21:43
PROVIDERS: ADMIT Family Medicine; ATTEND Hospitalist
DX: K52.9 Noninfective gastroenteritis and colitis, unspecified (principal); N17.9 Acute kidney failure, unspecified; R18.8 Other ascites; K92.1 Melena; I10 Essential (primary) hypertension; E03.9 Hypothyroidism, unspecified; F41.8 Other specified anxiety disorders; E66.9 Obesity, unspecified; Z68.29 Body mass index [BMI] 29.0-29.9, adult; G89.29 Other chronic pain; Z85.3 Personal history of malignant neoplasm of breast; Z23 Encounter for immunization; Z88.2 Allergy status to sulfonamides; Z20.822 Contact with and (suspected) exposure to COVID-19
CPT/HCPCS: 36415; 74177; 80048; 80053; 81003; 81015; 82150; 83690; 83735; 85025; 86850; 86900; 86901; 90471; 90732; 93005; 96365; 96375; 97116; 97161; 97530; 99285; C9113; J0744; J2270; J2405; J3490; J7030; Q9967; U0003

== ENCOUNTER → 2023-03-21 | Emergency (ER) | payer OTHER ==
[~2023-03-21] MED LIST: METRONIDAZOLE 500mg IVPB 500 MG/100 ML BAG IV ONE; MORPHINE 2 MG/ML SYR ONE; MORPHINE 4 MG/ML SYR ONE; NA CHLORIDE 0.9% 1,000 ML ONE; NA CHLORIDE 0.9% 100 ML ONE; ONDANSETRON 4 MG/2 ML VIAL ONE; PIPERACIL/TAZO 3.375 GM VIAL IV ONE
--- OUTSIDE RECORDS SUMMARY | 2023-03-21 18:22 | XMS REPORT | Continuity of Care Document ---
Author Name Unknown Address [address] [place] [address] [facility] [address] [place] [address] Care Team Providers Care Senior Construction Estimator Name Role Phone CHARLEE FRANCIS Primary Care Physician Unavailab Charlee Carreon Attending Clinician Unavailable JESSICA HINOJOAS Attending Clinician Unavailabl e JESSICA HINOJOSA Attending Clinician Unavailabl e [email or web address]_S Attending Clinician Unavaila ble Radiology Attending Clinician Unavailable RADIOLOGY Attending Clinician Unavailable [email or web address]_S Admitting Clinician Unavaila ble Payers Payer Name Policy Type Policy Number Effective Date Expirati on Date Source MEDICARE PART A \T\ B [id number] 2009 00:00:00 [employer] Replace C1 [id number] 2019 00:00:00 [facility] Problems Condition Name Condition Details Condition Category Status Onset Date Resolution Date Last Treatment Date Treating Clinician Comments Source Essential hypertensi on Essential (primary) hypertensi on Problem Active [facility] Osteoporos is Osteoporos is Problem Active [facility] Malignant neoplasm of upper-oute r quadrant of female breast 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 Problem Active [facility] Chronic bronchitis Chronic bronchitis Problem Active [facility] Allergies, Adverse Reactions, Alerts Allergy Name Allergy Type Status Severity Reaction(s) Onset Date Inactive Date Treating Clinician Comments Source NO KNOWN ALLERGIE S Drug Class Active [facility] Social History Social Habit Start Date Stop Date Quantity Comments Source Sex Assigned At [facility] History of Tobacco Use [facility] Smoking Status Start Date Stop Date Source Tobacco smoking consumption unknown [facility] Never Smoker [facility] Medications Ordered Medication Name Filled Medication Name Start Date Stop Date Current Medication? Ordering Clinician Indication Dosage Frequency Signature (SIG) Comments Components Source Cefdinir 300 MG Cefdinir 300 MG 2020-02 0 00:00: 00 12-17 00:00 :00 No BID Cefdinir 300 MG Tamsulosin HCl Tamsulosin HCl 8-24 00:00: 00 04-05 00:00 :00 No Radha Oakridge 1 capsule [facility] Gabapentin Gabapentin Yes Radha Oakridge 1 capsule [facility] Alprazolam Alprazolam Yes Radha Rodolfo 1 tablet [facility] HydrOXYzine HCl HydrOXYzine HCl Yes Radha Barboure as directed [facility] Synthroid Synthroid Yes Radha Rodolfo 1 tablet on an empty stomach in the morning [facility] Hydrocodone -Ibuprofen Hydrocodone -Ibuprofen Yes Radha Rodolfo 1 tablet as needed [facility] Cozaar Cozaar Yes Radha Rodolfo 1 tablet [facility] Prozac Prozac Yes Radha Oakridge 2 tab [facility] Tramadol HCl Tramadol HCl Yes Radha Barboure as directed [facility] Methenamine Hippurate Methenamine Hippurate Yes Radha Oakridge 1 tablet [facility] Carvedilol Carvedilol Yes Radha Barboure as directed [facility] Cozaar 25 MG Cozaar 25 MG No 1{table t} QD Cozaar 25 MG Methenamine Hippurate 1 GM Methenamine Hippurate 1 GM No 1{table t} BID Methenamin e Hippurate 1 GM Synthroid 125 MCG Synthroid 125 MCG No QD Synthroid 125 MCG HydrOXYzine HCl 10 MG HydrOXYzine HCl 10 MG No HydrOXYzin e HCl 10 MG Prozac 40 mg Prozac 40 mg No Prozac 40 mg Tramadol HCl 50 MG Tramadol HCl 50 MG No Tramadol HCl 50 MG Hydrocodone -Ibuprofen 7.5-200 MG Hydrocodone -Ibuprofen 7.5-200 MG No 1{table t_as_ne eded} QID Hydrocodon e-Ibuprofe n 7.5-200 MG Gabapentin 300 MG Gabapentin 300 MG No 1{capsu le} QD Gabapentin 300 MG Tamsulosin HCl 0.4 MG Tamsulosin HCl 0.4 MG No 1{capsu le} QD Tamsulosin HCl 0.4 MG Carvedilol 6.25 MG Carvedilol 6.25 MG No Carvedilol 6.25 MG Alprazolam 0.25 MG Alprazolam 0.25 MG No 1{table t} BID Alprazolam 0.25 MG traMADol HCl 50 MG traMADol HCl 50 MG No traMADol HCl 50 MG hydrOXYzine HCl 10 MG hydrOXYzine HCl 10 MG No hydrOXYzin e HCl 10 MG Methenamine Hippurate 1 GM Methenamine Hippurate 1 GM No 1{table t} BID Methenamin e Hippurate 1 GM Synthroid 125 MCG Synthroid 125 MCG No QD Synthroid 125 MCG Tamsulosin HCl 0.4 MG Tamsulosin HCl 0.4 MG No Tamsulosin HCl 0.4 MG ALPRAZolam 0.25 MG ALPRAZolam 0.25 MG No 1{table t} BID ALPRAZolam 0.25 MG HYDROcodone -Ibuprofen 7.5-200 MG HYDROcodone -Ibuprofen 7.5-200 MG No 1{table t_as_ne eded} QID HYDROcodon e-Ibuprofe n 7.5-200 MG Carvedilol 6.25 MG Carvedilol 6.25 MG No Carvedilol 6.25 MG Tamsulosin HCl 0.4 MG Tamsulosin HCl 0.4 MG No 1{capsu le} QD Tamsulosin HCl 0.4 MG Cozaar 25 MG Cozaar 25 MG No 1{table t} QD Cozaar 25 MG Gabapentin 300 MG Gabapentin 300 MG No 1{capsu le} QD Gabapentin 300 MG Prozac 40 mg Prozac 40 mg No Prozac 40 mg Vital Signs Vital Name Observation Time Observation Value Comments Leanne jackman height 2020-12-12 16:20:00 64 [in_i] [facility] weight 2020-12-12 16:20:00 191.5 [lb_av] [facility] temperature 2020-12-12 16:20:00 98.2 [degF] Com [facility] bmi 2020-12-12 16:20:00 32.87 kg/m2 [facility] oximetry 2020-12-12 16:20:00 [facility] 2020-12-12 16:20:00 134 mm[Hg] [facility] blood pressure diastolic 2020-12-12 16:20:00 82 mm[Hg] [facility] oximetry 2020-01-03 10:00:00 96 % [facility] blood pressure systolic 2020-01-03 10:00:00 112 mm[Hg] [facility] blood pressure diastolic 2020-01-03 10:00:00 67 mm[Hg] [facility] height 2020-01-03 10:00:00 64 [in_i] [facility] weight 2020-01-03 10:00:00 191.5 [lb_av] [facility] temperature 2020-01-03 10:00:00 97.8 [degF] Com [facility] bmi 2020-01-03 10:00:00 32.87 kg/m2 [facility] Procedures Procedure Date / Time Performed Performing Clinician Source DEXA AXIAL (HIP AND SPINE) 2021-10-30 18:54:47 Deysi Quezada [facility] NOTICE OF BILLING PRACTICES FOR MEDICARE PATIENTS 2021-10-30 17:59:37 Doctor Unassigned, [place] [facility] PATIENT FINANCIAL POLICY 2021-10-30 17:59:06 Doctor Unassigned, [place] [facility] NO SHOW OR MISSED APPOINTMENT POLICY ACKNOWLEDGEMENT 2021-10-30 17:58:41 Doctor Unassigned, [place] [facility] NOTICE OF PRIVACY PRACTICES 2021-10-30 17:58:10 Doctor Unassigned, [place] [facility] CONSENT/REFUSAL FOR DIAGNOSIS AND TREATMENT 2021-10-30 17:57:44 Doctor Unassigned, [place] [facility] ASSIGNMENT OF BENEFITS 2021-10-30 17:57:16 Docto r Unassigned, [place] [facility] Encounters Start Date/Time End Date/Time Encounter Type Admission Type Attending [facility] Care Department Encounter ID Source 2022-06-09 15:33:00 Outpatient Hal Charlee [facility] [id number] [facility] 2021-03-12 14:07:36 Outpatient Hal, Charlee [facility] [id number] [facility] 2021-03-12 13:53:28 Outpatient Hal Charlee [facility] [id number] [facility] 2021-03-12 12:11:49 Outpatient Hal Charlee [facility] [id number] [facility] 2021-03-12 11:44:15 Outpatient Hal, Charlee [facility] [id number] [facility] 2021-03-12 11:35:50 Outpatient Hal, Charlee [facility] [id number] [facility] 2022-11-20 10:45:00 2022-11-20 10:45:00 Outpatient JESSICA PENNINGTON CRAIG [facility] [id number] [facility] 2022-11-06 11:15:00 2022-11-06 11:15:00 Outpatient R JESSICA HINOJOSA HINOJOSARICARDOIG [facility] [id number] [facility] 2022-10-26 14:15:00 2022-10-26 14:15:00 Outpatient R JESSICA HINOJOSA CRAIG [facility] [id number] [facility] 2022-10-16 11:15:00 2022-10-16 11:15:00 Outpatient R JESSICA HINOJOSA [facility] [id number] [facility] 2022-09-04 00:00:00 2022-09-04 00:00:00 Outpatient GC_GCBZW_Ka diyala_S PRIV [facility] [id number] [facility] 2021-10-30 12:57:22 2021-10-30 23:59:00 Hospital Encounter Radiology [facility] [id number] [facility] 2021-10-30 12:55:50 2021-10-30 12:56:00 Outpatient R RADIOLOGY [facility] [id number] [facility] 2021-10-30 12:55:50 2021-10-30 12:56:00 Hospital Encounter Radiology [facility] [id number] [facility] 2020-12-12 00:00:00 2020-12-12 00:00:00 OFFICE VISIT EST PT LEVEL 3 STLMLC STLMLC [id number] [facility] 2020-01-03 00:00:00 2020-01-03 00:00:00 OFFICE VISIT EST PT LEVEL 3 STLMLC STLMLC [id number] [facility] 2019 00:00:00 2019 00:00:00 Outpatient STLMLC STLMLC [id number] [facility] 2019-10-30 13:25:00 2019-10-30 13:25:00 [facility] [id number] [facility] 2019-10-09 10:00:00 2019-10-09 10:00:00 [facility] [id number] [facility] 2019-10-02 14:19:00 2019-10-02 14:19:00 [facility] [id number] [facility] 2019-09-14 11:39:00 2019-09-14 11:39:00 [facility] [id number] [facility]
[2023-03-21 20:21] LABS: Absolute Lymphocytes (CBC) 1.4 K/uL (0.7-4.9); Hematocrit 34.4 % (36.0-45.0); Lymphocytes % 27.7 % (15.3-44.8); MCV 92.7 fL (80-100); MPV 7.3 fL (7.6-11.3); Platelets 297 thou/uL (152-406); RBC Red Blood Cell Count 3.71 M/uL (3.86-4.86)
[2023-03-21 21:01] LABS: Bilirubin Total 0.2 mg/dL (0.2-1.0); C-Reactive Protein 8.49 mg/L (<3.00); Potassium 3.8 mEq/L (3.5-5.1); Protein, Total 6.6 g/dL (6.4-8.2); Troponin High Sensitivity 18.8 pg/mL (<58.9)
--- NOTE | 2023-03-21 21:50 | RAD REPORT ---
EXAM DESCRIPTION: CT - Abdomen Pelvis W Contrast - 03/21/2023 9:27 pm CLINICAL HISTORY: Abdominal pain COMPARISON: 2021 TECHNIQUE: Computed axial tomography of the abdomen pelvis was obtained. 100 cc Isovue-300 was admin istered intravenously. Oral contrast was not requested which limits evaluation of bowel and appendix All CT scans are performed using dose optimization technique as appropriate and may include automated exposure control or mA/KV adjustment according to patient size. FINDINGS: Moderate dilatation of the intra and extrahepatic biliary tree. Cholecystectomy Development of a 3.7 centimeter low-density area posterior segment right lobe liver. The spleen, pancreas and left adrenal gland are unremarkable Mild soft tissue has developed medial to the IVC extending into the right adrenal gland. 5.2 centimeter right renal cyst. Left kidney contains a small cyst. Hysterectomy. No evidence of diverticulitis. Right lateral bladder wall thickening IMPRESSION: Moderate dilatation of the intra and extrahepatic biliary tree without significant bahena e from prior exam. This may be physiologic in this patient status post cholecystectomy. Pathology suc h as a stricture can also result in this appearance. This should be correlated clinically and with ap propriate lab values Right lateral bladder wall thickening likely either inflammation or neoplasm Development of a 3.7 centimeter low-density area right lobe of the liver may be early abscess. Neopla sm is another consideration. Mild soft tissue adjacent to the IVC extending to the right adrenal gland. This could be neoplastic.
--- NOTE | 2023-03-21 22:31 | ER ---
Nurse's Notes [facility] Name: Esau Flynn Age: 77 yrs Sex: Female : 1945 Arrival Date: 03/21/2023 Time: 18:19 Bed 18 Private MD: Diagnosis: Liver abscess, right flank pain Presentation: 03/21 19:03 Chief complaint: Right flank pain x 2 weeks. Coronavirus screen: At this time, the hb client does not indicate any symptoms associated with coronavirus-19. Ebola Screen: No symptoms or risks identified at this time. Initial Sepsis Screen: Does the patient meet any 2 criteria? No. Patient's initial sepsis screen is negative. Does the patient have a suspected source of infection? No. Patient's initial sepsis screen is negative. Risk Assessment: Do you want to hurt yourself or someone else? Patient reports no desire to harm self or others. Onset of symptoms was March 07, 2023. 19:03 Method Of Arrival: Ambulatory 19:03 Acuity: KHUSHI 3 hb Historical: - Allergies: 19:04 Sulfa (Sulfonamide Antibiotics); hb - PMHx: 19:04 breast cancer; Hypertension; Hypothyroidism; neuropathy; hb - Immunization history:: Adult Immunizations unknown. - Family history:: not pertinent. - Social history:: Smoking status: unknown. Screenin:15 [facility] ED Fall Risk Assessment (Adult) History of falling in the last 3 months, km8 including since admission No falls in past 3 months (0 pts) Confusion or Disorientation No (0 pts) Intoxicated or Sedated No (0 pts) Impaired Gait No (0 pts) Mobility Assist Device Used No (0 pt) Altered Elimination No (0 pt) Score/Fall Risk Level 0 - 2 = Low Risk Oriented to surroundings, Maintained a safe environment, Educated pt \T\ family on fall prevention, incl call for assistance when getting out of bed, Assessed \T\ reinforced patient's understanding of fall precautions. Abuse screen: Denies threats or abuse. Denies injuries from another. Nutritional screening: No deficits noted. Tuberculosis screening: No symptoms or risk factors identified. Assessment: 20:15 General: Appears in no apparent distress. comfortable, Behavior is calm, cooperative, km8 appropriate for age. Pain: Complains of pain in right mid back Pain radiates to abdomen Pain currently is 8 out of 10 on a pain scale. Neuro: Level of Consciousness is awake, alert, obeys commands, Oriented to person, place, time, situation. Cardiovascular: Denies chest pain, shortness of breath, Capillary refill < 3 seconds. Respiratory: Airway is patent Respiratory effort is even, unlabored, Respiratory pattern is regular, symmetrical. GI: No signs and/or symptoms were reported involving the gastrointestinal system. : No signs and/or symptoms were reported regarding the genitourinary system. EENT: No signs and/or symptoms were reported regarding the EENT system. Derm: Skin is intact, Skin is dry, Skin is pale, Skin temperature is warm. Musculoskeletal: No signs and/or symptoms reported regarding the musculoskeletal system. Circulation, motion, and sensation intact. Range of motion: intact in all extremities. 21:00 Reassessment: Patient appears in no apparent distress at this time. No changes from km8 previously documented assessment. Patient and/or family updated on plan of care and expected duration. Pain level reassessed. Patient is alert, oriented x 3, equal unlabored respirations, skin warm/dry/pink. 22:00 Reassessment: Patient appears in no apparent distress at this time. No changes from km8 previously documented assessment. Patient and/or family updated on plan of care and expected duration. Pain level reassessed. Patient is alert, oriented x 3, equal unlabored respirations, skin warm/dry/pink. 23:21 Reassessment: Patient appears in no apparent distress at this time. No changes from km8 previously documented assessment. Patient and/or family updated on plan of care and expected duration. Pain level reassessed. Patient is alert, oriented x 3, equal unlabored respirations, skin warm/dry/pink. Vital Signs: 19:03 BP 141 / 82; Pulse 56; Resp 16; Temp 97.7(O); Pulse Ox 100% on R/A; Weight 75.75 kg; hb Height 5 ft. 4 in. ; Pain 8/10; 20:15 BP 151 / 80; Pulse 55; Resp 16; Pulse Ox 97% on R/A; km8 20:30 BP 107 / 65; Pulse 47; Resp 16; Pulse Ox 98% on R/A; km8 21:00 BP 109 / 71; Pulse 54; Resp 16; Pulse Ox 97% on R/A; km8 22:00 BP 115 / 61; Pulse 52; Resp 16; Pulse Ox 97% on R/A; km8 23:19 BP 113 / 75; Pulse 60; Resp 16; Pulse Ox 99% on R/A; km8 19:03 Body Mass Index 28.67 (75.75 kg, 162.56 cm) hb 19:03 Pain Scale: Adult hb Wells Coma Score: 20:15 Eye Response: spontaneous(4). Motor Response: obeys commands(6). Verbal Response: km8 oriented(5). Total: 15. ED Course: 18:21 Patient arrived in ED. mg5 19:04 Triage completed. hb 19:05 Eze Jaffe MD is Attending Physician. sp4 19:14 Gina Ross, BING is Primary Nurse. km8 20:13 Inserted saline lock: 20 gauge in right antecubital area, using aseptic technique. km8 Blood collected. 20:14 Arm band placed on right wrist. km8 20:15 No provider procedures requiring assistance completed. Patient maintains SpO2 km8 saturation greater than 95% on room air. 20:15 Patient has correct armband on for positive identification. Call light in reach. Side km8 rails up X2. Pulse ox on. NIBP on. 21:28 CT Abd/Pelvis - IV Contrast Only In Process Unspecified. EDMS 22:[address] [facility] spoke with Juan Miguel Diego. pm6 23:00 Pt accepted to [id number] \T\ [address] Dank Olivera \T\ 2250 per pm 6 Juan Miguel Diego. 23:31 initiated Transfer Truck with [facility] ETA 15 min. pm6 23:57 Patient transferred, IV remains in place. km8 23:57 Provided Education on: transfer process. km8 Administered Medications: 20:13 Drug: morphine IVP or IV 6 mg IVP once over 4 mins Route: IVP; Infused Over: 4 mins; km8 Site: right antecubital; 21:00 Follow up: Response: No adverse reaction; Pain is decreased km8 20:13 Drug: NS 0.9% IV 1000 ml IV at 125 ml/hr continuous Route: IV; Rate: 125 ml/hr; Site: km8 right antecubital; 23:59 Follow up: IV Status: Infusion continued upon transfer km8 20:13 Drug: Ondansetron IVP 8 mg IVP once; over 2 minutes Route: IVP; Site: right antecubital;km8 21:00 Follow up: Response: No adverse reaction km8 23:12 Drug: Ondansetron IVP 4 mg IVP once; over 2 minutes Route: IVP; Site: right upper arm; km8 23:47 Follow up: Response: No adverse reaction km8 23:13 Drug: metroNIDAZOLE IVPB 500 mg 100 ml IVPB at 200 ml/hr once over 30 mins Volume: 100 km8 ml; Route: IVPB; Rate: 200 ml/hr; Infused Over: 30 mins; Site: right upper arm; 23:57 Follow up: IV Status: Completed infusion; IV Intake: 100ml km8 23:13 Drug: morphine IVP or IV 4 mg IVP once over 4 mins Route: IVP; Infused Over: 4 mins; km8 Site: right upper arm; 23:48 Follow up: Response: No adverse reaction; Pain is decreased km8 23:57 Drug: Piperacillin-Tazobactam IVPB 3.375 grams IVPB once over 60 mins; (mix in NS 100 km8 mL) Route: IVPB; Infused Over: 60 mins; Site: right upper arm; 23:57 Follow up: IV Status: Infusion continued upon transfer km8 Medication: 20:15 VIS not applicable for this client. km8 Intake: 23:57 IV: 100ml; Total: 100ml. km8 Outcome: 22:30 ER care complete, transfer ordered by MD. ryan 23:57 Transferred by ground EMS to [facility], Transfer form completed. km8 23:57 Condition: stable 23:57 Instructed on the need for transfer, Demonstrated understanding of instructions, 23:58 Patient left the ED. km8 Signatures: Dispatcher [employer] EDMS Herminia Gomes RN RN Eze Jaffe MD MD sp4 Geraldine Jennings mg5 Gina Ross RN RN km8 Samantha Ge pm6 Corrections: (The following items were deleted from the chart) 23:12 23:12 Ondansetron IVP 4 mg IVP in left upper arm 8 km8
--- NOTE | 2023-03-21 22:31 | EDPHYS ---
Physician Documentation [facility] Name: Esau Flynn Age: 77 yrs Sex: Female : 1945 Arrival Date: 03/21/2023 Time: 18:19 Bed 18 Private MD: ED Physician Eze Jaffe HPI: 03/21 19:05 This 77 yrs old Other Female presents to ER via Ambulatory with complaints of Flank sp4 Pain. 19:06 Historical: Allergies: 14:49 Sulfa (Sulfonamide Antibiotics) PMHx: 14:49 breast cancer; sp4 Hypertension; Hypothyroidism; neuropathy;. 22:23 77-year-old female with past medical history of breast cancer hypertension sp4 hypothyroidism neuropathy. Presents with right flank pain for the past 2 weeks. Right flank pain is constant and has gradually been getting worse in the past 2 weeks. Patient's breast cancer is currently in remission. . Historical: - Allergies: 19:04 Sulfa (Sulfonamide Antibiotics); hb - PMHx: 19:04 breast cancer; Hypertension; Hypothyroidism; neuropathy; hb - Immunization history:: Adult Immunizations unknown. - Family history:: not pertinent. - Social history:: Smoking status: unknown. ROS: 22:23 Constitutional: Negative for fever, chills, and weight loss, positive right flank pain sp4 22:23 All other systems are negative, Exam: 20:52 ECG was reviewed by the Attending Physician. 19:48 -at the rate of 50, sinus sp4 bradycardia 22:23 Constitutional: This is a well developed, well nourished patient who is awake, alert, sp4 and in no acute distress. Head/Face: Normocephalic, atraumatic. Eyes: Pupils equal round and reactive to light, extra-ocular motions intact. Lids and lashes normal. Conjunctiva and sclera are not injected. Cornea within normal limits. Periorbital areas with no swelling, redness, or edema. ENT: Nares patent. No nasal discharge, no septal abnormalities noted. Tympanic membranes are normal and external auditory canals are clear. Oropharynx with no redness, swelling, or masses, exudates, or evidence of obstruction, uvula midline. Mucous membranes moist. Neck: Trachea midline, no thyromegaly or masses palpated, and no cervical lymphadenopathy. Supple, full range of motion without nuchal rigidity, or vertebral point tenderness. Chest/axilla: Normal chest wall appearance and motion. Nontender with no deformity. No lesions are appreciated. Cardiovascular: Regular rate and rhythm with a normal S1 and S2. No gallops, murmurs, or rubs. Normal PMI, no JVD. No pulse deficits. Respiratory: Lungs have equal breath sounds bilaterally, clear to auscultation and percussion. No rales, rhonchi or wheezes noted. No increased work of breathing, no retractions or nasal flaring. Abdomen/GI: Soft, with normal bowel sounds. No distension or tympany. No guarding or rebound. Positive right flank tenderness. Back: No spinal tenderness. No costovertebral tenderness. Skin: Warm, dry with normal turgor. Normal color with no rashes, no lesions, and no evidence of cellulitis. MS/ Extremity: Pulses equal, no cyanosis. Neurovascular intact. Full, normal range of motion. Neuro: Awake and alert, GCS 15, oriented to person, place, time, and situation. Cranial nerves II-XII grossly intact. Motor strength 5/5 in all extremities. Sensory grossly intact. Psych: Awake, alert, with orientation to person, place and time. Behavior, mood, and affect are within normal limits Vital Signs: 19:03 BP 141 / 82; Pulse 56; Resp 16; Temp 97.7(O); Pulse Ox 100% on R/A; Weight 75.75 kg; hb Height 5 ft. 4 in. ; Pain 8/10; 20:15 BP 151 / 80; Pulse 55; Resp 16; Pulse Ox 97% on R/A; km8 20:30 BP 107 / 65; Pulse 47; Resp 16; Pulse Ox 98% on R/A; km8 21:00 BP 109 / 71; Pulse 54; Resp 16; Pulse Ox 97% on R/A; km8 22:00 BP 115 / 61; Pulse 52; Resp 16; Pulse Ox 97% on R/A; km8 23:19 BP 113 / 75; Pulse 60; Resp 16; Pulse Ox 99% on R/A; km8 19:03 Body Mass Index 28.67 (75.75 kg, 162.56 cm) hb 19:03 Pain Scale: Adult hb Geni Coma Score: 20:15 Eye Response: spontaneous(4). Motor Response: obeys commands(6). Verbal Response: km8 oriented(5). Total: 15. MDM: 19:28 Patient medically screened. sp4 22:23 Differential diagnosis: nephrolithiasis, pyelonephritis, UTI, diverticulitis, sp4 pancreatitis, Colonic abscess. Data reviewed: vital signs, nurses notes, lab test result(s), CBC, electrolytes, hepatic panel, urinalysis, radiologic studies, CT scan. Consideration of Admission/Observation Patient was admitted/placed on observation. Escalation of care including admission/observation considered. Management of patient was discussed with the following: Paraoptometric: General Surgery Dr. Esparza -General surgeon advised transfer for higher level of care for GI/hepatology assessment also for interventional radiology drainage of abscess. . ED course: EXAM DESCRIPTION: CT - Abdomen Pelvis W Contrast - 03/21/2023 9:27 pm CLINICAL HISTORY: Abdominal pain COMPARISON: 2021 TECHNIQUE: Computed axial tomography of the abdomen pelvis was obtained. 100 cc Isovue-300 was administered intravenously. Oral contrast was not requested which limits evaluation of bowel and appendix All CT scans are performed using dose optimization technique as appropriate and may include automated exposure control or mA/KV adjustment according to patient size. FINDINGS: Moderate dilatation of the intra and extrahepatic biliary tree. Cholecystectomy Development of a 3.7 centimeter low-density area posterior segment right lobe liver. The spleen, pancreas and left adrenal gland are unremarkable Mild soft tissue has developed medial to the IVC extending into the right adrenal gland. 5.2 centimeter right renal cyst. Left kidney contains a small cyst. Hysterectomy. No evidence of diverticulitis. Right lateral bladder wall thickening IMPRESSION: Moderate dilatation of the intra and extrahepatic biliary tree without significant change from prior exam. This may be physiologic in this patient status post cholecystectomy. Pathology such as a stricture can also result in this appearance. This should be correlated clinically and with appropriate lab values Right lateral bladder wall thickening likely either inflammation or neoplasm Development of a 3.7 centimeter low-density area right lobe of the liver may be early abscess. Neoplasm is another consideration. Mild soft tissue adjacent to the IVC extending to the right adrenal gland. This could be neoplastic.. ED course: Patient will be marked for transfer to [facility] for liver abscess, . 22:50 ED course: Accepted to [facility] at 22:50. sp4 03/21 19:13 Order name: CBC with Diff; Complete Time: 22:03 sp4 03/21 19:13 Order name: CMP; Complete Time: 22:03 sp4 03/21 19:13 Order name: Lipase; Complete Time: 22:03 sp4 03/21 19:13 Order name: Urinalysis w/ reflexes; Complete Time: 04:30 sp4 03/21 19:14 Order name: CK; Complete Time: 22:03 sp4 03/21 19:15 Order name: CRP; Complete Time: 22:03 sp4 03/21 19:15 Order name: Troponin High Sensitivity; Complete Time: 22:03 sp4 03/21 22:05 Order name: SARS RAPID; Complete Time: 04:30 sp4 03/21 22:05 Order name: Blood Culture Adult (2) sp4 03/21 22:05 Order name: Lactate w/ 2H reflex if indic.; Complete Time: 04:30 sp4 03/21 19:14 Order name: CT Abd/Pelvis - IV Contrast Only; Complete Time: 22:03 sp4 03/21 19:15 Order name: EKG; Complete Time: 19:15 sp4 03/21 19:13 Order name: IV Saline Lock; Complete Time: 20:14 sp4 03/21 19:13 Order name: Labs collected and sent; Complete Time: 20:14 sp4 03/21 19:15 Order name: EKG - Nurse/Tech; Complete Time: 19:51 sp4 EC:52 Rate is 50 beats/min. Rhythm is regular, Sinus bradycardia. QRS [place] is Normal. MT sp4 interval is normal. QRS interval is normal. QT interval is normal. No Q waves. T waves are Normal. No ST changes noted. Clinical impression: No evidence of ischemia. Interpreted by me. Reviewed by me. Administered Medications: 20:13 Drug: morphine IVP or IV 6 mg IVP once over 4 mins Route: IVP; Infused Over: 4 mins; [facility] Site: right antecubital; 21:00 Follow up: Response: No adverse reaction; Pain is decreased [facility] 20:13 Drug: NS 0.9% IV 1000 ml IV at 125 ml/hr continuous Route: IV; Rate: 125 ml/hr; Site: [facility] right antecubital; 23:59 Follow up: IV Status: Infusion continued upon transfer km8 20:13 Drug: Ondansetron IVP 8 mg IVP once; over 2 minutes Route: IVP; Site: right antecubital;km8 21:00 Follow up: Response: No adverse reaction km8 23:12 Drug: Ondansetron IVP 4 mg IVP once; over 2 minutes Route: IVP; Site: right upper arm; km8 23:47 Follow up: Response: No adverse reaction 8 23:13 Drug: metroNIDAZOLE IVPB 500 mg 100 ml IVPB at 200 ml/hr once over 30 mins Volume: 100 km8 ml; Route: IVPB; Rate: 200 ml/hr; Infused Over: 30 mins; Site: right upper arm; 23:57 Follow up: IV Status: Completed infusion; IV Intake: 100ml 8 23:13 Drug: morphine IVP or IV 4 mg IVP once over 4 mins Route: IVP; Infused Over: 4 mins; km8 Site: right upper arm; 23:48 Follow up: Response: No adverse reaction; Pain is decreased 8 23:57 Drug: Piperacillin-Tazobactam IVPB 3.375 grams IVPB once over 60 mins; (mix in NS 100 km8 mL) Route: IVPB; Infused Over: 60 mins; Site: right upper arm; 23:57 Follow up: IV Status: Infusion continued upon transfer km8 Disposition Summary: 03/21/23 22:30 Transfer Ordered Notes: Transfer Location: [facility] sp4 Reason: Higher level of care sp4 Condition: Stable sp4 Problem: new sp4 Symptoms: have improved sp4 Accepting Physician: [facility](03/21/23 23:58) km8 Diagnosis - Liver abscess, right flank pain sp4 Forms: - Medication Reconciliation Form sp4 - SBAR form sp4 Signatures: Dispatcher [employer] EDHerminia Mccoy RN RN hb Potepalov, Sergey, MD MD sp4 Gina Ross RN RN km8 Corrections: (The following items were deleted from the chart) 23:58 22:30 [facility] sp4 km8
[2023-03-21 23:04] LABS: SARS-CoV-2 Antigen Rapid Res Negative (Negative)
[2023-03-21 23:17] LABS: Urine Bacteria None Seen /HPF (<20); Urine Bilirubin NEGATIVE (Negative); Urine Blood Trace (Negative); Urine Clarity Clear (Clear); Urine Color Yellow (Yellow); Urine Glucose NEGATIVE (Negative); Urine Mucus Slight /HPF (None Seen); Urine Protein TRACE (Negative); Urine Urobilinogen Normal (Normal); Urine pH 5.5 (5.0-7.0)
[2023-03-21 23:32] LABS: Specific Gravity > 1.035 (1.005-1.030)
[2023-03-22 05:55] VITALS: TEMP 97.7
[2023-03-22 06:11] VITALS: BP 113/75; O2SAT 99
--- NOTE | 2023-03-22 14:58 | EKG ---
Test Date: 2023-03-21 Test Time: 19:48:00 Analytical Lab Technician: MARGOT MEASUREMENT RESULTS: Intervals: Rate: 51 KS: 146 QRSD: 80 QT: 470 QTc: 433 Mangum: P: 45 KS: 146 QRS: 12 T: 49 INTERPRETIVE STATEMENTS: Sinus bradycardia Nonspecific ST and T wave abnormality Abnormal ECG Compared to ECG 08/09/2021 15:03:45 ST (T wave) deviation now present Sinus rhythm no longer present T-wave abnormality no longer present Electronically Signed On 03-22-23 14:57:10 AQUATIC PERFORMER by Stephen Castrejon
--- NOTE | 2023-03-22 14:58 | EKG ---
Test Date: 2023-03-21 Test Time: 19:48:51 [employer]k Gas Specialist: MARGOT MEASUREMENT RESULTS: Intervals: Rate: 50 TN: 152 QRSD: 90 QT: 496 QTc: 452 [place]: P: 56 TN: 152 QRS: 6 T: 64 INTERPRETIVE STATEMENTS: Sinus bradycardia Nonspecific T wave abnormality Abnormal ECG Compared to ECG 03/21/2023 19:48:00 T-wave abnormality now present ST (T wave) deviation no longer present Electronically Signed On 03-22-23 14:57:08 [employer] by Stephen Castrejon
== END ==
LOC: ER 18:19
DX: K75.0 Abscess of liver (principal); E03.9 Hypothyroidism, unspecified; I10 Essential (primary) hypertension; Z85.3 Personal history of malignant neoplasm of breast; Z11.52 Encounter for screening for COVID-19; Z88.2 Allergy status to sulfonamides
CPT/HCPCS: 93005 ×2; 87040 ×2; 85025; 81001; 36415; 82550; 83605; 84484; 83690; 80053; 86140; 74177; 87811; Q9967; J2543; J2270; J2405 ×2; J7030

== ENCOUNTER → 2023-04-06 | Emergency (ER) | payer OTHER ==
[~2023-04-06] MED LIST changes: -METRONIDAZOLE 500mg IVPB 500 MG/100 ML BAG IV ONE; -MORPHINE 2 MG/ML SYR ONE; -NA CHLORIDE 0.9% 1,000 ML ONE; -NA CHLORIDE 0.9% 100 ML ONE; -PIPERACIL/TAZO 3.375 GM VIAL IV ONE
[2023-04-06 17:47] LABS: Albumin 2.9 g/dL (3.4-5.0); Bilirubin Total 0.4 mg/dL (0.2-1.0)
[2023-04-06 17:55] LABS: Potassium 3.9 mEq/L (3.5-5.1)
[2023-04-06 18:05] LABS: Absolute Lymphocytes (CBC) 1.1 K/uL (0.7-4.9); Hematocrit 34.1 % (36.0-45.0); Lymphocytes % 24.5 % (15.3-44.8); MCV 92.3 fL (80-100); MPV 7.2 fL (7.6-11.3); Platelets 336 thou/uL (152-406)
--- NOTE | 2023-04-06 18:41 | RAD REPORT ---
EXAM DESCRIPTION: US - UPPER EXTREMITY VENOUS UNILATE - 04/06/2023 6:19 pm CLINICAL HISTORY: Right upper extremity swelling COMPARISON: None. FINDINGS: The right internal jugular, subclavian, brachial, axillary, cephalic, basilic, radial and ulnar veins demonstrate phasic signal. The veins are generally compressible. Doppler demonstrates good flow Grayscale, color and spectral analysis performed on all vessels IMPRESSION: No evidence of thrombus involving the right upper extremity
--- NOTE | 2023-04-06 18:58 | RAD REPORT ---
EXAM DESCRIPTION: CT - Abdomen Pelvis W Contrast - 04/06/2023 6:33 pm CLINICAL HISTORY: Abdominal pain COMPARISON: March 21, 2023 CT TECHNIQUE: Computed axial tomography of the abdomen pelvis was obtained. 100 cc Isovue-300 was admin istered intravenously. Oral contrast was not requested which limits evaluation of bowel and appendix All CT scans are performed using dose optimization technique as appropriate and may include automated exposure control or mA/KV adjustment according to patient size. FINDINGS: The pneumobilia has developed since the prior exam. Moderate dilatation of the intra and e xtrahepatic biliary tree without significant change. 3.7 centimeter lesion right lobe liver without significant change. Soft tissue adjacent to the IVC extending to the right adrenal gland unchanged. Spleen, pancreas, left adrenal gland are unremarkable. Bilateral renal cysts Mild bladder wall thickening. No evidence of diverticulitis. 2.3 centimeter lytic lesion right aspect of the L4 vertebral body. Possible subcentimeter lytic lesio n L3 vertebral body Thickening of the distal stomach could be secondary to incomplete distention or inflammation IMPRESSION: Development of a pneumobilia may be secondary to recent instrumentation. Moderate dilata tion of the biliary tree is unchanged. Cholecystectomy. Stable hepatic lesion Soft tissue adjacent to the IVC extending to the right adrenal gland unchanged. This likely is neopla stic 2.3 centimeter lytic lesion L4 vertebral body with possible additional subcentimeter lytic lesion L3 vertebral body presumably metastatic disease
--- NOTE | 2023-04-06 19:12 | EDPHYS ---
Physician Documentation [facility] Name: Esau Flynn Age: 77 yrs Sex: Female : 1945 Arrival Date: 04/06/2023 Time: 16:00 Bed 2 Private MD: ED Physician Loki Frederick HPI: 04/06 18:27 This 77 yrs old Female presents to ER via Ambulatory with complaints of kb Nausea/Vomiting, Hand Swelling, Abdominal Pain - Puncture site. 18:27 Patient is a 77-year-old female who presents for right upper quadrant pain with nausea kb and vomiting as well as swelling to the right hand. Son states that patient had a biopsy of her liver on , 6 days ago and the symptoms have been ongoing since then. Denies fever.. Historical: - Allergies: 16:15 Sulfa (Sulfonamide Antibiotics); ph - PMHx: 16:15 breast cancer; Hypothyroidism; neuropathy; Hypertension; ph - PSHx: 16:15 LIVER BIOPSY; ph - Immunization history:: Adult Immunizations unknown. - Social history:: Smoking status: Patient denies any tobacco usage or history of. ROS: 16:11 Constitutional: Negative for fever, chills, and weight loss, kb 16:11 Abdomen/GI: Positive for abdominal pain, nausea and vomiting, 16:11 MS/extremity: Positive for swelling, of the right hand, 16:11 All other systems are negative, Exam: 16:11 Constitutional: This is a well developed, well nourished patient who is awake, alert, kb and in no acute distress. Head/Face: Normocephalic, atraumatic. ENT: Moist Mucous membranes Cardiovascular: Regular rate Respiratory: Respirations even and unlabored. No increased work of breathing. Talking in full sentences Skin: Warm, dry with normal turgor. Normal color. MS/ Extremity: Pulses equal, no cyanosis. Neurovascular intact. Full, normal range of motion. Neuro: Awake and alert, GCS 15, oriented to person, place, time, and situation. Moves all extremities. Normal gait. 16:11 Abdomen/GI: Inspection: puncture wound to upper right lateral abdomen without redness, swelling, drainage, warmth, Bowel sounds: normal, Palpation: abdomen is soft and non-tender, in all quadrants, Vital Signs: 16:11 BP 136 / 92; Pulse 81; Resp 18; Temp 97.7(TE); Pulse Ox 97% ; Weight 76.66 kg; Height 5 ph ft. 4 in. ; 17:40 BP 134 / 82; Pulse 58; Resp 18; Pulse Ox 92% on R/A; ld1 19:15 BP 159 / 81; Pulse 57; Resp 18; Pulse Ox 96% on R/A; me1 19:31 BP 157 / 85; Pulse 56; Resp 16; Pulse Ox 95% on R/A; me1 16:11 Body Mass Index 29.01 (76.66 kg, 162.56 cm) ph MDM: 16:02 Patient medically screened. kb 16:12 Data reviewed: vital signs, nurses notes. kb 18:28 Historians other than the Patient: Daughter/Son: son. kb 19:09 Differential diagnosis: abscess, post procedure pain. Consideration of kb Admission/Observation Escalation of care including admission/observation considered. transfer considered, but CT findings similar to previous, pt had multiple procedures at [facility] to evaluate liver and LFTs normal. . Management of patient was discussed with the following: Dr Frederick. Counseling: I had a detailed discussion with the patient and/or guardian regarding the historical points, exam findings, and any diagnostic results supporting the discharge/admit diagnosis, lab results, radiology results, the need for outpatient follow up, a family practitioner, to return to the emergency department if symptoms worsen or persist or if there are any questions or concerns that arise at home. ED course: Pt and son in agreement with outpatient follow up. 04/06 16:10 Order name: CBC with Diff; Complete Time: 18:12 kb 04/06 16:10 Order name: CMP; Complete Time: 17:55 kb 04/06 16:10 Order name: Lipase; Complete Time: 17:55 kb 04/06 16:10 Order name: CT Abd/Pelvis - IV Contrast Only; Complete Time: 19:01 kb 04/06 18:21 Order name: UPPER EXTREMITY VENOUS UNILATE; Complete Time: 18:42 EDMS 04/06 16:10 Order name: IV Saline Lock; Complete Time: 17:45 kb 04/06 16:10 Order name: Labs collected and sent; Complete Time: 17:45 kb 04/06 17:28 Order name: Labs - recollect needed; Complete Time: 17:45 ll1 Administered Medications: 17:45 Drug: Ondansetron IVP 4 mg IVP once; over 2 minutes Route: IVP; Site: right antecubital;ld1 19:22 Follow up: Response: No adverse reaction; Nausea is decreased me1 19:21 Drug: morphine IVP or IV 4 mg IVP once over 4 mins Route: IVP; Infused Over: 4 mins; me1 Site: right antecubital; 19:22 Follow up: Response: No adverse reaction; Pain is decreased me1 19:22 Drug: Ondansetron IVP 4 mg IVP once; over 2 minutes Route: IVP; Site: right antecubital;me1 19:22 Follow up: Response: No adverse reaction; Nausea is decreased me1 Disposition: 16:40 I was immediately available on-site in the Emergency Department for consultation in the ms3 care of the patient. Disposition Summary: 04/06/23 19:11 Discharge Ordered Notes: Location: Home kb Condition: Stable kb Diagnosis - Upper abdominal pain, unspecified kb Followup: kb - With: Emergency Department - When: As needed - Reason: Worsening of condition Followup: kb - With: Private Physician - When: 2 - 3 days - Reason: Recheck today's complaints, Continuance of care, Re-evaluation by your physician Discharge Instructions: - Discharge Summary Sheet kb - Abdominal Pain, Adult, [id number] kb Forms: - Medication Reconciliation Form kb - Thank You Letter kb - Antibiotic Education kb - Prescription Opioid Use kb - Patient Portal Instructions kb - Leadership Thank You Letter kb Signatures: Dispatcher [employer] EDCatrina Rodriges, LEGAL ASSISTANT-C LEGAL ASSISTANT-Keyla Gardiner RN RN Vinnie Toussaint RN RN ll1 Michael Roman DO DO ms3 Elaina Roman RN RN ld1 Tyra Dos Santos RN RN me1 Corrections: (The following items were deleted from the chart) 18:20 16:11 Extremity Venous [email or web address] ordered. EDMT EDMS
--- NOTE | 2023-04-06 19:12 | ER ---
Nurse's Notes [facility] Name: Esau Flynn Age: 77 yrs Sex: Female : 1945 Arrival Date: 04/06/2023 Time: 16:00 Bed 2 Private MD: Diagnosis: Upper abdominal pain, unspecified Presentation: 04/06 16:11 Chief complaint: Patient's son or daughter states: SON STATES MOM HAD LIVER BIOPSY ON LAST WEDNESDAY. HAS UPPER RIGHT ABD PAIN AND BLOATING STARTED WEDNESDAY AND HAS BEEN GETTING WORSE. SON STATES GAVE MEDICATION FOR NAUSEA. STATES HAS RIGHT HAND SWELLING X 2 DAYS. Coronavirus screen: Client denies travel out of the [place] in the last 14 days. At this time, the client does not indicate any symptoms associated with coronavirus-19. Ebola Screen: Patient negative for fever greater than or equal to 101.5 degrees Fahrenheit, and additional compatible Ebola Virus Disease symptoms Patient denies exposure to infectious person. Patient denies travel to an Ebola-affected area in the 21 days before illness onset. No symptoms or risks identified at this time. Initial Sepsis Screen: Does the patient meet any 2 criteria? No. Patient's initial sepsis screen is negative. Does the patient have a suspected source of infection? No. Patient's initial sepsis screen is negative. Risk Assessment: Do you want to hurt yourself or someone else? Patient reports no desire to harm self or others. Onset of symptoms was April 02, 2023. 16:11 Method Of Arrival: Ambulatory 16:11 Acuity: KHUSHI 3 Triage Assessment: 16:15 General: Appears in no apparent distress. uncomfortable, Behavior is calm, cooperative. ph Pain: Complains of pain in abdomen. GI: Reports upper abdominal pain. Historical: - Allergies: 16:15 Sulfa (Sulfonamide Antibiotics); ph - PMHx: 16:15 breast cancer; Hypothyroidism; neuropathy; Hypertension; ph - PSHx: 16:15 LIVER BIOPSY; ph - Immunization history:: Adult Immunizations unknown. - Social history:: Smoking status: Patient denies any tobacco usage or history of. Screenin:04 [facility] ED Fall Risk Assessment (Adult) History of falling in the last 3 months, me1 including since admission No falls in past 3 months (0 pts) Confusion or Disorientation No (0 pts) Intoxicated or Sedated No (0 pts) Impaired Gait No (0 pts) Mobility Assist Device Used No (0 pt) Altered Elimination No (0 pt) Score/Fall Risk Level 0 - 2 = Low Risk Maintained a safe environment, Provided non-skid footwear, Hourly rounding (assess needs \T\ fall precautionary measures) done. Abuse screen: Denies threats or abuse. Nutritional screening: No deficits noted. Tuberculosis screening: No symptoms or risk factors identified. Assessment: 17:04 General: Appears uncomfortable, well groomed, well developed, well nourished, Behavior me1 is calm, cooperative, appropriate for age, Reports SON STATES MOM HAD LIVER BIOPSY ON LAST WEDNESDAY. HAS UPPER RIGHT ABD PAIN AND BLOATING STARTED WEDNESDAY AND HAS BEEN GETTING WORSE. SON STATES GAVE MEDICATION FOR NAUSEA. STATES HAS RIGHT HAND SWELLING X 2 DAYS. Pain: Complains of pain in abdomen and right hand Pain does not radiate. Pain currently is 8 out of 10 on a pain scale. Quality of pain is described as sharp, Pain began 2-3 days ago. Is Alleviated by. Neuro: Level of Consciousness is awake, alert, obeys commands, Oriented to person, place, time, situation, Appropriate for age. Cardiovascular: Capillary refill < 3 seconds Patient's skin is warm and dry. Respiratory: Airway is patent Trachea midline Respiratory effort is even, unlabored, Respiratory pattern is regular, symmetrical. GI: Abdomen is round Reports upper abdominal pain, nausea, SON STATES MOM HAD LIVER BIOPSY ON LAST WEDNESDAY. HAS UPPER RIGHT ABD PAIN AND BLOATING STARTED WEDNESDAY AND HAS BEEN GETTING WORSE. SON STATES GAVE MEDICATION FOR NAUSEA. STATES HAS RIGHT HAND SWELLING X 2 DAYS. Musculoskeletal: Reports pain in right hand. Vital Signs: 16:11 BP 136 / 92; Pulse 81; Resp 18; Temp 97.7(TE); Pulse Ox 97% ; Weight 76.66 kg; Height 5 ph ft. 4 in. ; 17:40 BP 134 / 82; Pulse 58; Resp 18; Pulse Ox 92% on R/A; ld1 19:15 BP 159 / 81; Pulse 57; Resp 18; Pulse Ox 96% on R/A; me1 19:31 BP 157 / 85; Pulse 56; Resp 16; Pulse Ox 95% on R/A; me1 16:11 Body Mass Index 29.01 (76.66 kg, 162.56 cm) ph ED Course: 16:02 Patient arrived in ED. im 16:02 Catrina Mcginnis FNP-C [facility]. kb 16:02 Michael Roman DO is Attending Physician. kb 16:14 Triage completed. ph 16:15 Arm band placed on left wrist. Patient placed in an exam room. ph 16:19 Radiology exam delayed due to IV insertion attempt and/or patient not having nj appropriate IV at this time. 16:19 Radiology exam delayed due to lab results not completed at this time. (BUN/Creatinine). nj 16:38 Tyra Dos Santos, BING is Primary Nurse. me1 17:04 Patient has correct armband on for positive identification. Bed in low position. Call me1 light in reach. Side rails up X2. Provided Education on: POC. Verbalized understanding. . 17:04 No provider procedures requiring assistance completed. me1 17:10 Radiology exam delayed due to IV insertion attempt and/or patient not having nj appropriate IV at this time. 17:10 Radiology exam delayed due to lab results not completed at this time. (BUN/Creatinine). nj 17:45 Inserted saline lock: 22 gauge in right antecubital area, using aseptic technique. ld1 Blood collected. 18:21 UPPER EXTREMITY VENOUS UNILATE In Process Unspecified. EDMS 18:35 CT Abd/Pelvis - IV Contrast Only In Process Unspecified. EDMS 19:17 Loki Frederick MD is Attending Physician. kb 19:39 IV discontinued, intact, bleeding controlled, No redness/swelling at site. Pressure me1 dressing applied. Administered Medications: 17:45 Drug: Ondansetron IVP 4 mg IVP once; over 2 minutes Route: IVP; Site: right antecubital;ld1 19:22 Follow up: Response: No adverse reaction; Nausea is decreased me1 19:21 Drug: morphine IVP or IV 4 mg IVP once over 4 mins Route: IVP; Infused Over: 4 mins; me1 Site: right antecubital; 19:22 Follow up: Response: No adverse reaction; Pain is decreased me1 19:22 Drug: Ondansetron IVP 4 mg IVP once; over 2 minutes Route: IVP; Site: right antecubital;me1 19:22 Follow up: Response: No adverse reaction; Nausea is decreased me1 Medication: 17:04 VIS not applicable for this client. me1 Outcome: 19:11 Discharge ordered by MD. helms 19:39 Discharged to home via wheelchair, with family, me1 19:39 Condition: stable 19:39 Discharge instructions given to patient, family, Instructed on discharge instructions, follow up and referral plans. Demonstrated understanding of instructions, follow-up care, 19:39 Patient left the ED. me1 Signatures: Dispatcher [employer] Catrina Cazares, UNIFORM ATTENDANT-C UNIFORM ATTENDANT-Keyla Gardiner, RN RN [facility] Hospital[facility]amos Lauren, RN RN ld1 Dali Arreola Michelle RN RN me1 Corrections: (The following items were deleted from the chart) 16:15 16:11 Onset of symptoms was April 06, 2023 ph ph 16:16 16:11 Chief complaint: Patient's son or daughter states: SON STATES MOM HAD LIVER ph BIOPSY ON LAST WEDNESDAY. HAS UPPER RIGHT ABD PAIN AND BLOATING STARTED WEDNESDAY AND HAS BEEN GETTING WORSE. SON STATES GAVE MEDICATION FOR NAUSEA. ph 17:04 16:11 Chief complaint: Patient's son or daughter states: SON STATES MOM HAD LIVER me1 BIOPSY ON LAST WEDNESDAY. HAS UPPER RIGHT ABD PAIN AND BLOATING STARTED [place] AND HAS BEEN GETTING WORSE. SON STATES GAVE MEDICATION FOR NAUSEA. STATES HAS RIGHT HAND SWELLING X 2 DAYS ph
[2023-04-06 20:06] VITALS: BP 157/85; TEMP 97.7; O2SAT 95
== END ==
LOC: ER 16:00
DX: R10.11 Right upper quadrant pain (principal); R11.2 Nausea with vomiting, unspecified; I10 Essential (primary) hypertension; Z88.2 Allergy status to sulfonamides; Z85.3 Personal history of malignant neoplasm of breast
CPT/HCPCS: 85025; 36415; 83690; 80053; 74177; 93971; Q9967; J2405 ×2

== ENCOUNTER → 2023-04-08 | Emergency (ER) | payer OTHER ==
[~2023-04-08] MED LIST changes: +MORPHINE 2 MG/ML SYR ONE; -MORPHINE 4 MG/ML SYR ONE; -ONDANSETRON 4 MG/2 ML VIAL ONE
[2023-04-08 13:36] LABS: Absolute Lymphocytes (CBC) 0.9 K/uL (0.7-4.9); Hematocrit 37.4 % (36.0-45.0); Lymphocytes % 18.5 % (15.3-44.8); MCV 92.6 fL (80-100); MPV 7.1 fL (7.6-11.3); Platelets 382 thou/uL (152-406); RBC Red Blood Cell Count 4.04 M/uL (3.86-4.86)
[2023-04-08 13:55] LABS: Albumin 3.3 g/dL (3.4-5.0); Bilirubin Total 0.4 mg/dL (0.2-1.0); Potassium 3.6 mEq/L (3.5-5.1); Protein, Total 7.6 g/dL (6.4-8.2)
--- NOTE | 2023-04-08 15:03 | RAD REPORT ---
EXAM DESCRIPTION: CT - Abdomen Pelvis W Contrast - 04/08/2023 1:50 pm CLINICAL HISTORY: ABD PAIN COMPARISON: Abdomen Pelvis W Contrast dated 04/06/2023; Abdomen Pelvis W Contrast dated 03/21/2023; Abdomen Pelvis W Contrast dated 08/12/2021; Abdomen Pelvis W Contrast dated 08/09/2021; UPPER EXTR EMITY VENOUS UNILATE dated 04/06/2023 TECHNIQUE: Thin cut axial CT imaging of the abdomen and pelvis was performed following intravenous a dministration of 100 mL Isovue 300. Multiplanar reformats were generated and reviewed. All CT scans are performed using dose optimization technique as appropriate and may include automated exposure control or mA/KV adjustment according to patient size. FINDINGS: Trace pleural effusion on the right, stable. Hazy airspace opacification in the left lingu la is stable, mild favors chronic scarring/fibrosis. The liver shows a stable ill-defined posterior right lobe subcapsular 3.7 x 2.8 cm hypoattenuating le magalis with internal fluid density components. A wedge-shaped region of heterogeneous hypoattenuation p osterior to this lesion appears stable as well. Pneumobilia with residual moderate intra and extrahep atic biliary ductal dilation again seen. Linear thickening along the right anterior adrenal gland with some marginal hyperenhancement, stable. Adjacent hypoattenuating structures extending medial and anterior to the IVC, now demonstrating cent ral fluid density components with some marginal enhancement, including a 2.1 x 1.2 cm ovoid component interposed between the IVC and right diaphragmatic crura, and 1.1 cm ill-defined fluid component int erposed between the IVC and portal vein. Similar changes extend to the hepatic hilum. The findings ar e stable with the exception of more conspicuous central fluid density components as above. Stable mar ked caliber attenuation at the IVC at that level. Spleen, and pancreas show no suspicious findings. Gallbladder was surgically removed. Symmetric renal function, without a suspicious focal renal mass. Bilateral renal cysts including a ri ght lower pole 5.2 cm, stable. No dilated bowel loops or bowel wall thickening. No free air, free fluid or inflammatory stranding. N o hernia, mass or bulky lymphadenopathy. The urinary bladder is without significant finding. Stable ill-defined lytic lesion involving the right aspect of L4 vertebral body. Stable ill-defined s maller lytic lesion within the right aspect of L3 vertebral body. Possibility of metastatic disease s hould again be entertained. IMPRESSION: More conspicuous central fluid density components along the soft tissue density abnormal ities medial and anterior to the IVC, the largest of these measures up to 2.1 cm. The findings are ot herwise stable. Findings may relate to resolving postoperative fluid or blood products, with or witho ut superimposed infection. Possibility of metastatic soft tissue deposits cannot be entirely excluded . Stable ill-defined posterior right liver lobe 3.7 cm heterogeneous hypoattenuating structure. Please correlate with recent pathology results. Stable pneumobilia and up to moderate intra and extrahepatic biliary ductal dilation. Sequelae of cho lecystectomy. Other stable findings as above.
--- NOTE | 2023-04-08 16:34 | EDPHYS ---
Physician Documentation [facility] Name: Esau Flynn Age: 77 yrs Sex: Female : 1945 Arrival Date: 04/08/2023 Time: 12:27 Bed 13 Private MD: ED Physician Roman Tierney HPI: 04/08 16:26 This 77 yrs old Female presents to ER via EMS with complaints of Abdominal Pain. rn 16:26 The patient presents with abdominal pain that is diffuse. Onset: The symptoms/episode rn began/occurred at an unknown time. The symptoms do not radiate. Associated signs and symptoms: Pertinent negatives: nausea and vomiting, blood in stools, chest pain, constipation, fever, shortness of breath. The symptoms are described as crampy, intermittent. Modifying factors: The symptoms are alleviated by nothing, the symptoms are aggravated by nothing. Severity of pain: At its worst the pain was moderate in the emergency department the pain has improved. The patient has experienced similar episodes in the past. Patient and family report abdominal pain, unclear onset but seems like it has been happening for weeks. Recent admission at [facility] including upper GI scope, biliary stent and liver biopsy. Family just notified me that liver biopsy shows metastatic breast cancer. Patient sees Dr. Kurtz. Patient with a history of cancer but was supposed to be cancer free. No blood in stool. No vomiting. Decreased appetite. No fever. No chills. No chest pain or shortness of breath. Seen here a few days ago without acute findings, states still ongoing pain but no gross change.. Historical: - Allergies: 12:57 Sulfa (Sulfonamide Antibiotics); nj1 - PMHx: 12:57 breast cancer; Hypertension; Hypothyroidism; neuropathy; nj1 - PSHx: 12:57 liver biopsy; nj1 - Immunization history:: Client reports receiving the 2nd dose of the Covid vaccine. - Social history:: Smoking status: Patient denies any tobacco usage or history of. - Family history:: not pertinent. - Hospitalizations: : Patient was recently seen at. ROS: 16:29 Constitutional: Negative for fever, chills, and weight loss, Cardiovascular: Negative rn for chest pain, palpitations, and edema, Respiratory: Negative for shortness of breath, cough, wheezing, and pleuritic chest pain, Abdomen/GI: Negative for nausea, vomiting, diarrhea, and constipation MS/Extremity: Negative for injury and deformity, Skin: Negative for injury, rash, and discoloration, Neuro: Negative for headache, weakness, numbness, tingling, and seizure, Exam: 16:29 Constitutional: This is a well developed, well nourished patient who is awake, alert, rn and in no acute distress. Head/Face: Normocephalic, atraumatic. Cardiovascular: Regular rate and rhythm. No pulse deficits. Respiratory: No increased work of breathing, no retractions or nasal flaring. Abdomen/GI: Soft, non-tender MS/ Extremity: Pulses equal, no cyanosis. Neuro: Awake and alert, GCS 15 Vital Signs: 12:41 BP 151 / 100; Pulse 62; Resp 17; Temp 98(O); Pulse Ox 100% ; Weight 73 kg; Height 5 ft. nj1 4 in. ; 14:35 BP 156 / 100; Pulse 62; Resp 18; Pulse Ox 97% ; nj1 15:48 BP 155 / 85; Pulse 62; Resp 18; Pulse Ox 97% on R/A; nj1 17:00 BP 159 / 102; Pulse 62; Resp 19; Pulse Ox 98% on R/A; nj1 12:41 Body Mass Index 27.62 (73.00 kg, 162.56 cm) nj1 MDM: 12:42 Patient medically screened. rn 16:29 Differential diagnosis: bowel obstruction, diverticulitis, gastroesophageal reflux rn disease, non-specific abd pain, pancreatitis, Cancer, liver mass, omental involvement. Data reviewed: vital signs, nurses notes, lab test result(s), radiologic studies, CT scan, and as a result, I will discharge patient. Counseling: I had a detailed discussion with the patient and/or guardian regarding the historical points, exam findings, and any diagnostic results supporting the discharge/admit diagnosis, lab results, radiology results, the need for outpatient follow up, to return to the emergency department if symptoms worsen or persist or if there are any questions or concerns that arise at home. Special discussion: I discussed with the patient/guardian in detail that at this point there is no indication for admission to the hospital. It is understood, however, that if the symptoms persist or worsen the patient needs to return immediately for re-evaluation. Based on the history and exam findings, there is no indication for further emergent testing or inpatient evaluation. I discussed with the patient/guardian the need to see the saddle maker/oncologist for further evaluation of the symptoms. ED course: Patient with metastatic breast cancer, stage IV per the test results that the family just received. No acute findings or progressive findings compared to a few days ago either. Has hydrocodone and plans to follow-up with pain management. No indication for emergent surgery or admission. I have personally reviewed all of the results, including but not limited to blood tests and imaging deemed necessary to safely discharge this patient at this time. All results given to and printed out for patient. I personally went over all the results with the patient and answered all questions. Patient will follow-up with PCP and or specialist as discussed. Return precautions given and understood.. 04/08 13:01 Order name: CBC with Diff; Complete Time: 15:08 rn 04/08 13:01 Order name: CMP; Complete Time: 15:08 rn 04/08 13:01 Order name: Lipase; Complete Time: 15:08 rn 04/08 13:01 Order name: CT Abd/Pelvis - IV Contrast Only; Complete Time: 15:08 rn 04/08 13:01 Order name: IV Saline Lock; Complete Time: 13:50 rn 04/08 13:01 Order name: Labs collected and sent; Complete Time: 13:50 rn Administered Medications: 15:40 Drug: morphine IVP or IV 2 mg IVP once over 4 mins Route: IVP; Infused Over: 4 mins; nj1 Site: right antecubital; 17:00 Follow up: Response: No adverse reaction; Pain is decreased nj1 Disposition Summary: 04/08/23 16:34 Discharge Ordered Notes: Location: Home rn Problem: new rn Symptoms: have improved rn Condition: Stable rn Diagnosis - Abdominal pain, unspecified rn Followup: rn - With: Private Physician - When: As needed - Reason: Recheck today's complaints, Re-evaluation by your physician Discharge Instructions: - Discharge Summary Sheet rn - Abdominal Pain, Adult rn Forms: - Medication Reconciliation Form rn - Thank You Letter rn - Antibiotic internet and e business project manager - Prescription Opioid Use rn - Patient Portal Instructions rn - Leadership Thank You Letter rn Signatures: Dispatcher [employer] Roman Chapman MD MD rn Jaco, Norma, RN RN nj1
--- NOTE | 2023-04-08 16:34 | ER ---
Nurse's Notes [facility] Name: Esau Flynn Age: 77 yrs Sex: Female : 1945 Arrival Date: 04/08/2023 Time: 12:27 Bed 13 Private MD: Diagnosis: Abdominal pain, unspecified Presentation: 04/08 12:41 Chief complaint: EMS states: Right abdominal pain for 2 days. Liver biopsy about a week nj1 ago, seen here Wednesday. 12:41 Coronavirus screen: Vaccine status: Patient reports receiving the 2nd dose of the covid nj1 vaccine. Ebola Screen: Patient denies travel to an Ebola-affected area in the 21 days before illness onset. Initial Sepsis Screen: Does the patient meet any 2 criteria? No. Patient's initial sepsis screen is negative. Does the patient have a suspected source of infection? No. Patient's initial sepsis screen is negative. Risk Assessment: Do you want to hurt yourself or someone else? Patient reports no desire to harm self or others. Onset of symptoms was March 2023. 12:41 Method Of Arrival: EMS: [facility] nj1 12:41 Acuity: KHUSHI 3 nj1 Historical: - Allergies: 12:57 Sulfa (Sulfonamide Antibiotics); nj1 - PMHx: 12:57 breast cancer; Hypertension; Hypothyroidism; neuropathy; nj1 - PSHx: 12:57 liver biopsy; nj1 - Immunization history:: Client reports receiving the 2nd dose of the Covid vaccine. - Social history:: Smoking status: Patient denies any tobacco usage or history of. - Family history:: not pertinent. - Hospitalizations: : Patient was recently seen at. Screenin:45 [facility] ED Fall Risk Assessment (Adult) Score/Fall Risk Level 0 - 2 = Low Risk nj1 Oriented to surroundings, Maintained a safe environment, Hourly rounding (assess needs \T\ fall precautionary measures) done. 12:45 Abuse screen: Denies threats or abuse. Denies injuries from another. Nutritional nj1 screening: No deficits noted. Tuberculosis screening: No symptoms or risk factors identified. Assessment: 12:45 General: Appears in no apparent distress. comfortable, Behavior is calm, cooperative, nj1 appropriate for age. 12:45 Pain: Complains of pain in abdomen. Neuro: Level of Consciousness is awake, alert, nj1 obeys commands, Oriented to person, place, time, situation. Cardiovascular: Patient's skin is warm and dry. Respiratory: Airway is patent Respiratory effort is even, unlabored. GI: Reports lower abdominal pain, Patient currently denies diarrhea, nausea, vomiting. 13:53 Reassessment: Not in room, in imaging. nj1 14:35 Reassessment: Patient appears in no apparent distress at this time. Patient and/or nj1 family updated on plan of care and expected duration. Pain level reassessed. Patient is alert, oriented x 3, equal unlabored respirations, skin warm/dry/pink. 15:40 Reassessment: Patient appears in no apparent distress at this time. Patient and/or nj1 family updated on plan of care and expected duration. Pain level reassessed. Patient is alert, oriented x 3, equal unlabored respirations, skin warm/dry/pink. 17:00 Reassessment: Patient appears in no apparent distress at this time. Patient and/or nj1 family updated on plan of care and expected duration. Pain level reassessed. Patient is alert, oriented x 3, equal unlabored respirations, skin warm/dry/pink. Patient states feeling better. Vital Signs: 12:41 BP 151 / 100; Pulse 62; Resp 17; Temp 98(O); Pulse Ox 100% ; Weight 73 kg; Height 5 ft. nj1 4 in. ; 14:35 BP 156 / 100; Pulse 62; Resp 18; Pulse Ox 97% ; nj1 15:48 BP 155 / 85; Pulse 62; Resp 18; Pulse Ox 97% on R/A; nj1 17:00 BP 159 / 102; Pulse 62; Resp 19; Pulse Ox 98% on R/A; nj1 12:41 Body Mass Index 27.62 (73.00 kg, 162.56 cm) ma1 ED Course: 12:38 Patient arrived in ED. as6 12:38 Precious Armenta, BING is Primary Nurse. nj1 12:42 Roman Tierney MD is Attending Physician. rn 12:45 Patient has correct armband on for positive identification. Bed in low position. Call nj1 light in reach. Side rails up X 1. 12:45 Provided Education on: call light, fall precautions. nj1 12:57 Triage completed. nj1 12:58 Arm band placed on. nj1 13:25 Inserted saline lock: 20 gauge in right antecubital area, using aseptic technique. nj1 ,using aseptic technique. Ultrasound guided. Catheter tip well visualized within vasculature during placement. Blood collected. 13:52 CT Abd/Pelvis - IV Contrast Only In Process Unspecified. EDMS 14:40 Notified ED physician of vital signs. nj1 17:30 No provider procedures requiring assistance completed. nj1 17:30 IV discontinued, intact, bleeding controlled. nj1 Administered Medications: 15:40 Drug: morphine IVP or IV 2 mg IVP once over 4 mins Route: IVP; Infused Over: 4 mins; nj1 Site: right antecubital; 17:00 Follow up: Response: No adverse reaction; Pain is decreased nj1 Medication: 17:30 VIS not applicable for this client. nj1 Outcome: 16:34 Discharge ordered by . rn 17:30 Discharged to home via wheelchair, with family, nj1 17:30 Condition: stable nj1 17:30 Discharge instructions given to patient, family, Instructed on discharge instructions, follow up and referral plans. safety practices, Demonstrated understanding of instructions, follow-up care, 17:41 Patient left the ED. nj1 Signatures: Dispatcher [employer] EDMS Roman Tierney MD MD rn Slawson, Ashby, RN RN as6 Precious Armenta RN RN nj1 Corrections: (The following items were deleted from the chart) 14:49 14:35 Pulse 62bpm; Resp 18bpm; Pulse Ox 97%; nj1 nj1
[2023-04-08 18:35] VITALS: BP 159/102; TEMP 98; O2SAT 98
== END ==
LOC: ER 12:27
DX: R10.9 Unspecified abdominal pain (principal); I10 Essential (primary) hypertension; Z85.3 Personal history of malignant neoplasm of breast; Z88.2 Allergy status to sulfonamides
CPT/HCPCS: 85025; 36415; 83690; 80053; 74177; Q9967; J2270